=== PATIENT | male | born 2000 | race Two or more races ===

== ENCOUNTER 2024-06-26 10:50 | Emergency (ER) | payer MEDICAID, SELFPAY ==
[2024-06-26 10:51] VITALS: PULSE 96; RESP 18; O2SAT 96
[2024-06-26 11:09] VITALS: BP 129/72; PULSE 90; RESP 17; TEMP 37.4; O2SAT 98; BMI 27.7
--- NOTE | 2024-06-26 11:13 | EKG_ITS ---
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
--- NOTE | 2024-06-26 11:13 | XR_ITS ---
Examination: Abdomen AP single view Technique: AP portable supine abdomen, single view Exam date and time: June 26, 2024 1117 hrs. Indications: Onset abdominal pain today Findings: Nonobstructive bowel gas pattern Moderate stool throughout the colon No free air Lung bases clear Impression: Nonobstructive bowel gas pattern
--- NOTE | 2024-06-26 11:15 | PD.EDABDPN ---
ED Abdominal Pain RME/HPI General Chief Complaint: Abdominal Pain Stated complaint: ABDOMINAL PAIN Time seen by provider: 06/26/24 10:57 Arrival date/time: 06/26/24 10:50 RME / HPI RME / HPI narrative: 24-year-old male patient with significant history of depression, anxiety, was brought in by EMS for evaluation regarding lower abdominal pain. Onset of symptoms for the last 2 days, described as dull ache, severity mild. Patient denies any fever denies any vomiting but been complaining of constipation, last good bowel movement was 2 days ago. Denies any abdominal surgery. Related Data Allergies Allergy/AdvReac Type Severity Reaction Status Date / Time No Known Allergies Allergy Verified 11/30/21 13:27 Review of Systems Review of Systems Narrative Review of Systems: Review of system reviewed and within normal limits except mentioned in HPI ED Exam Narrative Physical exam: VITAL SIGNS: Reviewed. GENERAL APPEARANCE: Alert and interactive, follows commands, no acute distress, HEAD AND FACE: Non-traumatic. ENT: PERRL, pink conjunctivitis, eyelid no trauma, Mucous membrane moist. NECK: Supple, nontender, no nuchal rigidity. CHEST: No tenderness, no crepitus, no paradoxical movement, no retractions. LUNGS: Clear, well ventilated, symmetric, no rales, no wheezing, no ronchi, no stridor, good breath sounds bilaterally. HEART: Regular rate, regular rhythm, no murmur, no gallops. ABDOMEN: Soft, positive bowel sounds, nondistended, no guarding, lower abdominal tenderness r, no rebound, no masses, RECTAL: Deferred. GENITAL: Deferred. NEUROLOGICAL: Gross motor function intact sensory function intact, Appropriate for age. MUSCULOSKELETAL: low back nontender, full range of motion. EXTREMITIES: Nontender, full range of motion. SKIN: Color pink, dry, no rash, no lacerations, no abrasions, no contusions. LYMPHATICS: Deferred. Course Quality Measures none Orders Category Date Time Status EKG (ED ONLY) *Do not use* NOW Care 06/26/24 11:13 Completed EKG (ED Only) Stat Exams 06/26/24 11:13 Draft KUB [XR abdomen 1V] Stat Exams 06/26/24 11:13 Completed CBC Stat Lab 06/26/24 11:29 Completed Comprehensive Metabolic Panel Stat Lab 06/26/24 11:29 Completed Lipase Stat Lab 06/26/24 11:29 Completed Partial Thromboplastin Time Stat Lab 06/26/24 11:29 Completed UA, C/S IF [Urinalysis, C/S if Indicated] Stat Lab 06/26/24 11:45 Completed Acetaminophen Tab [Tylenol ES Tab] Med 06/26/24 11:13 Discontinued 1,000 mg PO X1 ONE DiphenhydrAMINE [Benadryl] Med 06/26/24 11:13 Discontinued 50 mg PO X1 ONE Magnesium Citrate Liqd [Citrate of Magnesia Liqd] Med 06/26/24 11:13 Discontinued 300 ml PO X1 ONE Vital Signs Vital signs: Vital Signs Temperature 99.3 F 06/26/24 11:09 Pulse Rate 90 06/26/24 11:09 Respiratory Rate 17 06/26/24 11:09 Blood Pressure 129/72 06/26/24 11:09 Pulse Oximetry (%) 98 06/26/24 11:09 Oxygen Delivery Method Room Air 06/26/24 11:09 Abdominal Pain MDM MDM Narrative MDM Narrative:: Patient eloped from the emergency room Patient data External records reviewed:: None Clinical information provided by:: none Social determinants that could affect healthcare access:: mental health Patient has the following chronic illnesses:: Depression anxiety How is presenting disease/condition affected by chronic disease/condition?: exacerbated by Evaluation data The following diagnostics were reviewed and interpreted by me:: lab results, radiology exam(s) and EKG tracing(s) Lab and/or radiology exams considered but not ordered:: None Interpretation Summary: EKG as interpreted by me shows normal sinus rhythm, ventricular rate of 55 bpm, no ST segment elevation or depression noted. X-ray of the abdomen came back unremarkable. Laboratory workup all came back unremarkable also. Medications / Prescriptions Medications or Prescriptions considered but not ordered:: None Medication administrations:: Medication Administration History Discontinued Medications Acetaminophen (Acetaminophen 500 Mg Tablet) 1,000 mg PO X1 ONE Stop: 06/26/24 11:14 Last Admin: 06/26/24 11:50 Dose: 1,000 mg Documented By: IVET Diphenhydramine HCl (Diphenhydramine 25 Mg Capsule) 50 mg PO X1 ONE Stop: 06/26/24 11:14 Last Admin: 06/26/24 11:51 Dose: 50 mg Documented By: IVET Magnesium Citrate (Magnesium Citrate 300 Ml Btl) 300 ml PO X1 ONE Stop: 06/26/24 11:14 Last Admin: 06/26/24 11:51 Dose: 300 ml Documented By: IVET Patient received Tylenol, Benadryl and mag citrate Consultations Consultation(s) initiated? (list below): No Diagnosis Differential diagnosis abdominal pain: abdominal pain, pancreatitis and small bowel obstruction Most likely diagnosis given after review of the tests above:: Abdominal pain, constipation, elopement Admission Indicated Admission indicated?: not indicated Explain why admission is indicated or not indicated:: Elopement Admission Request Was there a request for admission?: No Disposition Plan Disposition Plan: other (specify) Discharge Plan Plan Patient Disposition: Elopement Prescriptions/Referrals Referrals: No Primary/Family,Physician [Primary Care Provider] - In 1 week Problem List Clinical Impression: Abdominal pain Patient/Caregiver Discharge Instructions Print Language: Albanian
[2024-06-26 11:39] LABS: Basophils # (Auto) 0.1 Thou/mm3 (0.0-0.2); Basophils % (Auto) 1 % (0-2.5); Eosinophils # (Auto) 0.3 Thou/mm3 (0.0-0.5); Eosinophils % (Auto) 3 % (0-10); Hematocrit 47.5 % (41.0-53.0); Hemoglobin 16.5 g/dL (13.5-16.0); Immature Granulocytes % (Auto) 0 % (0-0); Immature Granulocytes Auto 0.02 Thou/mm3 (0.00-0.00); Lymphocytes # (Auto) 2.4 Thou/mm3 (1.0-4.8); Lymphocytes % (Auto) 25 % (10-50); Mean Corpuscular HGB Conc 34.7 g/dl (31.0-37.0); Mean Corpuscular Hemoglobin 29.3 pg (25.0-35.0); Mean Corpuscular Volume 84 fL (80-100); Monocytes % (Auto) 10 % (0-12); Neutrophils # (Auto) 5.9 Thou/mm3 (1.8-7.7); Neutrophils % (Auto) 61 % (37-80); Nucleated Red Blood Cell % 0 /100 WBC (0); Platelet Count 122 Thou/mm3 (140-440); RDW Standard Deviation 39.6 fL (35.1-43.9); Red Blood Count 5.63 Miln/mm3 (4.50-5.90); White Blood Count 9.6 Thou/mm3 (3.8-10.6)
[2024-06-26] MEDS: ACETAMINOPHEN 500 MG TABLET 1000 MG PO (11:50)
[2024-06-26] MEDS: MAGNESIUM CITRATE 300 ML BTL PO (11:51)
[2024-06-26] MEDS: DiphenhydrAMINE 25 MG CAPSULE 50 MG PO (11:51)
[2024-06-26 11:52] LABS: Partial Thromboplastin Time 29.5 Seconds (22.0-36.0)
[2024-06-26 11:58] LABS: Alanine Aminotransferase 53 U/L (10-49); Albumin, Serum 4.7 gm/dL (3.5-5.0); Albumin/Globulin Ratio 1.4 (1.2-2.2); Alkaline Phosphatase 92 U/L (46-116); Anion Gap 5 (7-16); Aspartate Amino Transferase 28 U/L (0-34); BUN/Creatinine Ratio 11 Ratio (12-20); Bilirubin,Total 0.7 mg/dL (0.3-1.2); Blood Urea Nitrogen 11 mg/dL (9-23); Chloride 105 mMol/L (98-107); Estimated Creatinine Clearance 113.9 mL/min (>60); Globulin 3.3 gm/dL (2.3-3.5); Glucose 88 mg/dL (74-106); Lipase 35 U/L (12-53); Osmolality,Calculated 274 (275-295); Potassium 3.6 mMol/L (3.4-5.1); Sodium 138 mMol/L (136-145); eGFR > 60 See Note
[2024-06-26 13:25] LABS: Collection Type, Urine Clean Catch; WBC,Urine 0 /hpf (0-5)
[2024-06-26 13:31] LABS: Bilirubin,Urine Negative (Negative); Blood,Urine Negative (Negative); Clarity,Urine Clear (Clear/Hazy); Color,Urine Colorless (Lt Yel-Yel); Culture Indicated,Urine Not Indicated; Glucose, Urine Negative (Negative); Ketones,Urine Negative (Negative); Leukocyte Esterase,Urine Negative (Negative); Nitrite,Urine Negative (Negative); PH,Urine 6.5 (5.0-7.0); Protein,Urine Negative (Neg - Trace); RBC,Urine 2 /hpf (0-3); Specific Gravity,Urine 1.007 (1.001-1.035); Squamous Epithelial Cell,Urine < 1 /hpf (0-5); Urobilinogen,Urine Negative mg/dL (0.0-1.0)
--- NOTE | 2024-06-26 13:56 | PC.NURSE ---
patient left from lobby
--- NOTE | 2024-06-26 13:56 | PC.NURSE ---
called patient from lobby no response @2052
--- NOTE | 2024-06-26 14:33 | PC.NURSE ---
patient was called 3x but no answer
--- NOTE | 2024-06-26 16:10 | PC.CC ---
ED Instruction Dean assisted with contacting [employer] to report AWOL Pt. Director Of Field Coordination spoke with dispatcher Yolanda from [employer] and gave report of Pt. Dispatcher Yolanda informed casualty underwriter that [employer] officer will be dispatch to [facility] in efforts to locate Pt. Director Of Field Coordination provider direct cell phone number for follow up if needed.
== END 2024-06-26 14:34 | disposition left against medical advice (07) ==
PROVIDERS: Nurse Practitioner Family; Emergency Provider Emergency Medicine
DX: R10.30 Lower abdominal pain, unspecified (principal); R94.31 Abnormal electrocardiogram [ECG] [EKG]
CPT/HCPCS: 36415; 74018; 80053; 81001; 83690; 85025; 85730; 93005; 99283; A9270

== ENCOUNTER 2024-07-29 09:23 | Emergency (ER) | payer MEDICAID, SELFPAY ==
[2024-07-29 09:40] VITALS: PULSE 134; RESP 18; O2SAT 97; BMI 29.2
--- NOTE | 2024-07-29 09:47 | PC.NURSE ---
social scientist contacted due to patient states he is lost, he walked from [place] to [place] all night and now he does not know where to go, he misses his mom
--- NOTE | 2024-07-29 09:54 | PC.CC ---
Sarah WOLFF was consulted by press tool maker Sara regarding patient he was found wandering around the city and BIBA. Patient is a client of [facility] made contact with [facility] on-call waiting for a call back. Patient unable to provide identifying information as to where he lives or phone numbers.
--- NOTE | 2024-07-29 10:05 | PD.EDADULT ---
ED General RME/HPI General Chief complaint: General Adult/Misc Complain Stated complaint: I'm lost and I want my mom Time Seen by Provider: 07/29/24 09:49 Arrival date/time: 07/29/24 09:23 RME / HPI RME / HPI narrative: DR. FINCH MAIN ED EVALUATION: 24 year old male presents to the Emergency Department [facility] after a random person called 911 after finding the patient wandering the streets of [place]. Patient appears mentally delayed and he did state he is lost. Patient walked away form a longterm and got lost. No symptoms reported. Related Data Allergies Allergy/AdvReac Type Severity Reaction Status Date / Time No Known Allergies Allergy Verified 11/30/21 13:27 Review of Systems Review of Systems Systems Reviewed: All systems reviewed, normal except as documented Narrative Review of Systems: GEN: No fever, no chills, no weight loss EYES: No discharge, no visual changes, no pain HEENT: No ear pain, no congestion, no sore throat PULM: No shortness of breath, no cough, no congestion CV: No chest pain, no dyspnea on exertion, no palpitations GI: No nausea, no vomiting, no diarrhea, no pain, no constipation : No frequency, no urgency and no dysuria MUSC/SKEL: No joint pain, no back pain SKIN: No rash PSYCH: No hallucinations, no depression HEME/LYMPH: No easy bleeding or bruising tendencies NEURO: No weakness, no headache Past Medical History Past Medical History CARDIAC: Negative Congestive Heart Failure RESPIRATORY: Negative Chronic Obstructive Pulmonary Disease (COPD) GENITOURINARY: Negative Renal Disease ENDOCRINE: Negative Diabetes Mellitus Type 1 or Diabetes Mellitus Type 2 Social History SMOKING STATUS: Never smoker ED Exam Narrative Physical exam: GENERAL APPEARANCE: alert, well-developed, well-nourished, no acute distress VITALS: All vitals were reviewed and the pulse ox is 97% on room air, which is normal according to my interpretation. HEENT: Normocephalic, atraumatic; pupils equal, round, reactive to light; EOMI; mucous membranes pink, moist; oropharynx clear NECK: Supple LUNGS: CTABL; no wheezes, no rales, no rhonchi HEART: Regular rate, regular rhythm; normal S1, S2; no murmurs ABDOMEN: non distended; normal BS; soft, no tenderness, no guarding, no rebound; no masses, no organomegaly, no hernia BACK: no CVA tenderness EXTREMITIES: atraumatic; no edema NEUROLOGIC: awake; alert; cranial nerves II-XII grossly intact; no focal sensory or motor deficits PSYCHIATRIC: appropriate mood and affect SKIN: warm, dry, normal color; no rashes Course Quality Measures none Vital Signs Vital signs: Vital Signs Temperature 98.1 F 07/29/24 10:18 Pulse Rate 92 07/29/24 10:18 Respiratory Rate 16 07/29/24 10:18 Blood Pressure 129/85 H 07/29/24 10:18 Pulse Oximetry (%) 97 07/29/24 10:18 Oxygen Delivery Method Room Air 07/29/24 10:18 MDM Patient data External records reviewed:: [facility] previous records (Reviewed last ED visit dated 06/26/24, discharged with the following: Abdominal pain.) Clinical information provided by:: patient and EMS Social determinants that could affect healthcare access:: housing (longterm) Patient has the following chronic illnesses:: Anxiety and depression. How is presenting disease/condition affected by chronic disease/condition?: uneffected by Evaluation data The following diagnostics were reviewed and interpreted by me:: other (specify) (none) Lab and/or radiology exams considered but not ordered:: none Interpretation Summary: n/a Medications Medications considered but not ordered:: none Medication administrations:: none Consultations Consultation(s) initiated? (list below): No Diagnosis Differential Diagnosis ED Complaint MDM: wandering behaviour, dehydration, anxiety Most likely diagnosis given after review of the tests above:: Wandering behavior Admission Indicated Admission indicated?: not indicated Explain why admission is indicated or not indicated:: Patient has no emergent abnormalities on his studies and can be managed on an outpatient basis. Admission Request Was there a request for admission?: No Disposition Plan Disposition Plan: Discharge Discharge Attestation Discharge Attestation: The patient and all family members were given an opportunity to ask questions and understood the discharge instructions. Discharge instructions specifically effects, indications for sooner follow up or return to the emergency department, and the expected course of current diagnosis. Patient condition: Stable Medical Decision Making MDM Narrative MDM Narrative: Esthela Barbosa, avinash scribing for and in the presence of Dr. Finch. Differential Diagnosis Differential Diagnosis: wandering behaviour, dehydration, anxiety Discharge Plan Plan Patient Disposition: HOME (Self Care) Disposition Comment: [facility] Problem List Clinical Impression: Wandering behavior Patient/Caregiver Discharge Instructions Print Language: Syriac Stand Alone Forms: Mayra Award Info., Patient Portal Info Letter
[2024-07-29 10:18] VITALS: BP 129/85; PULSE 92; RESP 16; TEMP 36.7; O2SAT 97
--- NOTE | 2024-07-29 10:19 | PC.CC ---
Patient livea at [facility], this is a [facility] home. The home health care case manager is Theresa Blevins and contact number is [phone]. She reported that patient has tendencies of sneaking out of the home.
== END 2024-07-29 10:30 | disposition home or self-care (01) ==
LOC: SERX 10:36
PROVIDERS: Emergency Provider Emergency Medicine
DX: Z76.89 Persons encountering health services in other specified circumstances (principal); Z91.83 Wandering in diseases classified elsewhere
CPT/HCPCS: 99281

== ENCOUNTER 2024-08-01 16:58 | Emergency (ER) | payer MEDICAID, SELFPAY ==
[2024-08-01 17:00] VITALS: BP 112/75; PULSE 92; RESP 18; TEMP 37.2; O2SAT 96
--- NOTE | 2024-08-01 17:23 | PC.CC ---
Patient was BIBA for 5150-Hold Danger to Self for [place] his wrist [place] the bus [place]. Patient is a [facility] client his [facility] worker is Aida Soler . Patient lives at [facility], this is a [facility] home. The home improvement installer is Theresa Blevins and contact number is [phone]. Theresa reports that the patient is not conserved. The patient recently had a medication change from Lexapro 10mg to 15mg approximately 3 weeks ago, patient also gets an Invega shot every 3 weeks. The patient has a mental health diagnosis of Major Depressive Disorder and Generalized Anxiety.
--- NOTE | 2024-08-01 18:02 | PD.EDSUICD ---
ED Psych RME/HPI General Chief Complaint: Suicidal Stated Complaint: HOLD Time Seen by Provider: 08/01/24 18:02 Source: patient and EMS Arrival date/time: 08/01/24 16:58 Mode of arrival: EMS Limitations: no limitations RME / HPI RME / HPI Narrative: --- DR. FLOYD MAIN ED EVALUATION: 24-year-old male brought in by EMS who presents to the emergency department on 5150 hold by Valeria CRANE. Police reports patient cut his left wrist with a razor blade. Patient reported suicidal ideation and anxiety because he is sad and misses his mom. Denies overdosing on any medication. Denies previous suicide attempts. Denies history of family suicide, panic disorder or recent loss. Denies homicidal ideation. Related Data Allergies Allergy/AdvReac Type Severity Reaction Status Date / Time No Known Allergies Allergy Verified 11/30/21 13:27 Review of Systems Review of Systems Systems Reviewed: All systems reviewed, normal except as documented Past Medical History Past Medical History CARDIAC: Negative Congestive Heart Failure RESPIRATORY: Negative Chronic Obstructive Pulmonary Disease (COPD) GENITOURINARY: Negative Renal Disease ENDOCRINE: Negative Diabetes Mellitus Type 1 or Diabetes Mellitus Type 2 OTHER HISTORY: Positive Developmental Delay Social History SMOKING STATUS: Never smoker ED Exam General Limitations: Present no limitations General appearance: Present alert and in no apparent distress Head Head exam: Present atraumatic, normocephalic and normal inspection Eye Eye exam: Present normal appearance, PERRL and EOMI ENT ENT exam: Present normal exam, normal oropharynx, TM's normal bilaterally and normal external ear exam Neck Neck exam: Present normal inspection and full ROM Chest Chest inspection: Present normal inspection and symmetric chest wall rise Respiratory Respiratory exam: Present normal lung sounds bilaterally Cardiovascular Cardiovascular exam: Present regular rate, normal rhythm and normal heart sounds Abdominal Exam Abdominal exam: Present normal bowel sounds Extremities Exam Extremities exam: Present normal inspection and full ROM Back Exam Back exam: Present normal inspection and full ROM Neurological Exam Neurological exam: Present alert, oriented X3 and CN II-XII intact Psychiatric Psychiatric exam: Present depressed and suicidal ideation Skin Skin exam: Present warm, dry, intact, normal color and other (lacerations to ulnar aspect of left forearm) Course Course Course Narrative: Patient was placed in observation for treatment and monitoring of psychiatric symptoms, at 08/01/24 16:58. Symptoms consist of suicidal ideation and depression. Treatment plan includes psychiatric consult, reassessments, and possible placement into psychiatric facility. The patient had access and provided personal hygiene, shower, food, water, and daily medications. 2018: Patient is medically cleared to be seen by crisis for mental health evaluation. Quality Measures none Orders Category Date Time Status CBC Stat Lab 08/01/24 18:31 Completed Comprehensive Metabolic Panel Stat Lab 08/01/24 18:31 Completed Drug Screen,Urine Stat Lab 08/01/24 20:18 Completed Vital Signs Vital signs: Vital Signs Temperature 99.0 F 08/01/24 17:00 Pulse Rate 92 08/01/24 17:00 Respiratory Rate 18 08/01/24 17:00 Blood Pressure 112/75 08/01/24 17:00 Pulse Oximetry (%) 96 08/01/24 17:00 Oxygen Delivery Method Room Air 08/01/24 17:00 Psych MDM Narrative MDM Narrative:: 0600: [facility]. Past medical, surgical, social and family history reviewed. Vitals and home medications reviewed. Results and treatment plan discussed. They will assume the care of the patient at this time and will follow the patient, pending mental health evaluation ? Scribe Attestation: Adwoa Barbosa, am scribing for and in the presence of Dr. Davies. Provider Notation: Although this document has been carefully reviewed, there may still be some phonetic and other typographical errors. These errors are purely grammatical due to imperfections in the software program and should not be construed in any way to compromise the substance of the patient's medical care during this visit. Patient data External records reviewed:: [facility] previous records Clinical information provided by:: patient Social determinants that could affect healthcare access:: housing (review of the record shows [facility] of [facility] [place] [facility]; followed by [facility]) Patient has the following chronic illnesses:: developmentally delayed, depression, anxiety How is presenting disease/condition affected by chronic disease/condition?: uneffected by Evaluation data The following diagnostics were reviewed and interpreted by me:: lab results Lab and/or radiology exams considered but not ordered:: None Interpretation Summary: Elevated WBC 13.1 Tox screen negative Medications / Prescriptions Medications or Prescriptions considered but not ordered:: None Medication administrations:: As above, if any Consultations Consultation(s) initiated? (list below): Yes Consultation #1 (Physician, Specialty, Details): Mental health evaluation Diagnosis Psych Differential Diagnosis: suicidal ideation, depression and acute anxiety Most likely diagnosis given after review of the tests above:: SI Admission Indicated Admission indicated?: not indicated Admission Request Was there a request for admission?: No Disposition Plan Disposition Plan: other (specify) (sign-out pending mental health evalaution and final disposition) Discharge Plan Plan Disposition Comment: Stable at the sign week out Patient condition on transfer: Stable Prescriptions/Referrals Referrals: Frank Son MD [Primary Care Provider] - In 1 week Problem List Clinical Impression: Suicidal ideation, Deliberate self-cutting, Abrasion forearm Patient/Caregiver Discharge Instructions Print Language: Telugu
[2024-08-01 18:30] VITALS: PULSE 76; RESP 16; O2SAT 98
[2024-08-01 18:42] LABS: Basophils # (Auto) 0.1 Thou/mm3 (0.0-0.2); Basophils % (Auto) 1 % (0-2.5); Eosinophils # (Auto) 0.3 Thou/mm3 (0.0-0.5); Eosinophils % (Auto) 2 % (0-10); Hematocrit 46.6 % (41.0-53.0); Hemoglobin 15.7 g/dL (13.5-16.0); Immature Granulocytes % (Auto) 0 % (0-0); Immature Granulocytes Auto 0.04 Thou/mm3 (0.00-0.00); Lymphocytes # (Auto) 2.4 Thou/mm3 (1.0-4.8); Lymphocytes % (Auto) 18 % (10-50); Mean Corpuscular HGB Conc 33.7 g/dl (31.0-37.0); Mean Corpuscular Hemoglobin 29.1 pg (25.0-35.0); Mean Corpuscular Volume 87 fL (80-100); Monocytes # (Auto) 0.9 Thou/mm3 (0.0-0.8); Monocytes % (Auto) 7 % (0-12); Neutrophils # (Auto) 9.4 Thou/mm3 (1.8-7.7); Neutrophils % (Auto) 72 % (37-80); Nucleated Red Blood Cell % 0 /100 WBC (0); Platelet Count 165 Thou/mm3 (140-440); RDW Standard Deviation 40.3 fL (35.1-43.9); Red Blood Count 5.39 Miln/mm3 (4.50-5.90); White Blood Count 13.1 Thou/mm3 (3.8-10.6)
[2024-08-01 19:03] LABS: Alanine Aminotransferase 42 U/L (10-49); Albumin, Serum 4.8 gm/dL (3.5-5.0); Albumin/Globulin Ratio 1.7 (1.2-2.2); Alkaline Phosphatase 83 U/L (46-116); Anion Gap 6 (7-16); Aspartate Amino Transferase 24 U/L (0-34); BUN/Creatinine Ratio 12 Ratio (12-20); Bilirubin,Total 0.5 mg/dL (0.3-1.2); Blood Urea Nitrogen 13 mg/dL (9-23); Calcium 9.8 mg/dL (8.3-10.6); Calcium (Corrected) 9.8 mg/dL (8.5-10.1); Carbon Dioxide 28.6 mMol/L (20.0-31.0); Chloride 104 mMol/L (98-107); Creatinine (Component) 1.1 mg/dL (0.6-1.3); Globulin 2.9 gm/dL (2.3-3.5); Glucose 92 mg/dL (74-106); Osmolality,Calculated 277 (275-295); Potassium 4.2 mMol/L (3.4-5.1); Sodium 139 mMol/L (136-145); Total Protein 7.7 gm/dL (5.7-8.2); eGFR > 60 See Note
[2024-08-01 20:26] VITALS: BP 106/66; PULSE 66; RESP 19; TEMP 36.6; O2SAT 96
[2024-08-01 22:15] LABS: Amphetamine/Methamp Scrn,U Negative (Negative); Barbiturate Screen,Urine Negative (Negative); Benzodiazepines Screen,Urine Negative (Negative); Benzoylecgonine Screen, Ur Negative (Negative); Fentanyl Screen,Urine Negative (Negative); Opiate Screen,Urine Negative (Negative); THC Screen,Urine Negative (Negative)
[2024-08-01 23:22] VITALS: BP 110/70; PULSE 70; RESP 18; TEMP 36.8; O2SAT 98
[2024-08-02 01:29] VITALS: BP 120/78; PULSE 68; RESP 17; TEMP 36.7; O2SAT 97
--- NOTE | 2024-08-02 03:18 | PC.NURSE ---
pt has been sleeping. arouses easily.
[2024-08-02 05:48] VITALS: BP 116/72; PULSE 66; RESP 16; TEMP 36.6; O2SAT 98
--- NOTE | 2024-08-02 06:35 | EDNOTE_ITS ---
Emergency Room Addendum <Esthela Olea - Last Filed: 08/02/24 10:43> Addendum Narrative: 0600: Care assumed from Dr. Preston, the previous shift emergency physician. Past medical, surgical, social and family history reviewed. Vitals and home medications reviewed. I will assume the care of the patient at this time, pending mental health evaluation and final disposition. The patient was placed in ED observation care at 08/02/2024 at 0600 hours. The patient was placed in ED observation care behavioral health evaluation. The patients past medical history, social history, and family history were reviewed. The plan of care will include serial examinations. Please refer to the emergency department record for history and examination.? While in ED observation the patient will have access to water, food, and personal hygiene. If the patient takes home medication(s), they will be continued in ED observation. Physical exam by me shows patient under no acute distress at this time. 1000: Psychiatric hold rescinded. Patient will be discharged. Safety plan in place. <Johnny Valenzuela MD - Last Filed: 08/02/24 10:51> Addendum Narrative: 0600: Care assumed from Dr. Preston, the previous shift emergency physician. Past medical, surgical, social and family history reviewed. Vitals and home medications reviewed. I will assume the care of the patient at this time, pending mental health evaluation and final disposition. The patient was placed in ED observation care at 08/02/2024 at 0600 hours. The pa tient was placed in ED observation care behavioral health evaluation. The patients past medical history, social history, and family history were reviewed. The plan of care will include serial examinations. Please refer to the emergency department record for history and examination.? While in ED observation the patient will have access to water, food, and personal hygiene. If the patient takes home medication(s), they will be continued in ED observation. Physical exam by me shows patient under no acute distress at this time. 1000: Psychiatric hold rescinded. Patient will be discharged. Safety plan in place. I spoke to the social professionals/mental health change number operator. She had rescinded the 5150 and decided to let the patient go back to the home. Care provider is rishabh ochoa to mixing picker tender. 10:50 AM, the patient is alert awake oriented x 4 GCS of 15 happy and smiling cooperative. I examined his left forearm and its only excoriation. No laceration. Nothing thick enough to warrant suture. And no bleeding. Diagnosis suicidal ideation Condition: Stable and improved DC instruction: Please do not cut yourself. Please do not overdose. Follow the instruction given you by the social professionals/mental health change number operator. Return the nearest ER for any problem
[2024-08-02 06:47] VITALS: BP 118/66; PULSE 68; RESP 17; TEMP 36.6; O2SAT 98
[2024-08-02 08:36] VITALS: BP 101/64; PULSE 60; RESP 18; TEMP 36.9; O2SAT 95
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
[2024-08-02 10:19] VITALS: BP 107/68; PULSE 60; RESP 17; TEMP 36.9; O2SAT 95
--- NOTE | 2024-08-03 19:25 | PC.CC ---
Pts chart accessed to update crisis stats and log.
== END 2024-08-02 11:28 | disposition home or self-care (01) ==
PROVIDERS: Emergency Medicine; Emergency Provider Emergency Medicine; PCP Family Medicine
DX: R45.851 Suicidal ideations (principal); S50.819A Abrasion of unspecified forearm, initial encounter; X78.8XXA Intentional self-harm by other sharp object, initial encounter
CPT/HCPCS: 36415; 80053; 80307; 85025; 96127; 99284

== ENCOUNTER 2024-08-04 15:36 | Emergency (ER) | payer MEDICAID, SELFPAY ==
[2024-08-04 15:45] VITALS: BP 115/80; PULSE 87; RESP 18; TEMP 37.2; O2SAT 97
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
[2024-08-04 16:18] LABS: Basophils # (Auto) 0.1 Thou/mm3 (0.0-0.2); Basophils % (Auto) 1 % (0-2.5); Eosinophils # (Auto) 0.2 Thou/mm3 (0.0-0.5); Eosinophils % (Auto) 2 % (0-10); Hematocrit 46.3 % (41.0-53.0); Immature Granulocytes % (Auto) 0 % (0-0); Immature Granulocytes Auto 0.02 Thou/mm3 (0.00-0.00); Lymphocytes % (Auto) 19 % (10-50); Mean Corpuscular HGB Conc 34.6 g/dl (31.0-37.0); Mean Corpuscular Hemoglobin 29.7 pg (25.0-35.0); Mean Corpuscular Volume 86 fL (80-100); Monocytes # (Auto) 0.8 Thou/mm3 (0.0-0.8); Monocytes % (Auto) 8 % (0-12); Neutrophils # (Auto) 7.3 Thou/mm3 (1.8-7.7); Neutrophils % (Auto) 70 % (37-80); Nucleated Red Blood Cell % 0 /100 WBC (0); Platelet Count 159 Thou/mm3 (140-440); RDW Standard Deviation 39.9 fL (35.1-43.9); Red Blood Count 5.39 Miln/mm3 (4.50-5.90); White Blood Count 10.5 Thou/mm3 (3.8-10.6)
[2024-08-04 16:20] VITALS: PULSE 102; RESP 18; O2SAT 96; BMI 22.8
[2024-08-04 16:38] LABS: Alanine Aminotransferase 50 U/L (10-49); Albumin, Serum 4.9 gm/dL (3.5-5.0); Albumin/Globulin Ratio 1.7 (1.2-2.2); Alkaline Phosphatase 81 U/L (46-116); Anion Gap 9 (7-16); Aspartate Amino Transferase 23 U/L (0-34); BUN/Creatinine Ratio 12 Ratio (12-20); Bilirubin,Total 0.6 mg/dL (0.3-1.2); Blood Urea Nitrogen 12 mg/dL (9-23); Calcium 9.5 mg/dL (8.3-10.6); Calcium (Corrected) 9.5 mg/dL (8.5-10.1); Carbon Dioxide 26.3 mMol/L (20.0-31.0); Chloride 104 mMol/L (98-107); Estimated Creatinine Clearance 111.5 mL/min (>60); Globulin 2.9 gm/dL (2.3-3.5); Glucose 95 mg/dL (74-106); Osmolality,Calculated 277 (275-295); Potassium 3.5 mMol/L (3.4-5.1); Sodium 139 mMol/L (136-145); Total Protein 7.8 gm/dL (5.7-8.2); eGFR > 60 See Note
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
[2024-08-04 17:32] LABS: Alcohol, Urine Negative (Negative); Amphetamine/Methamp Scrn,U Negative (Negative); Barbiturate Screen,Urine Negative (Negative); Benzodiazepines Screen,Urine Negative (Negative); Benzoylecgonine Screen, Ur Negative (Negative); Fentanyl Screen,Urine Negative (Negative); Opiate Screen,Urine Negative (Negative); THC Screen,Urine Negative (Negative)
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
== END 2024-08-04 18:31 | disposition home or self-care (01) ==
PROVIDERS: Registered Nurse General Practice; Emergency Provider Emergency Medicine; PCP Family Medicine
DX: Z62.22 Institutional upbringing (principal)
CPT/HCPCS: 36415; 80053; 80307; 80320; 85025; 96127; 99284; G0480

== ENCOUNTER 2024-08-06 17:50 | Emergency (ER) | payer MEDICAID, SELFPAY ==
[2024-08-06 17:52] VITALS: BP 107/72; PULSE 83; RESP 18; TEMP 36.9; O2SAT 97
--- NOTE | 2024-08-06 18:01 | PC.CC ---
CLIFFORDWSarah made contact with Theresa Blevins home visitor home base head start and reports that the patient has been eloping and she has requested one on one time from [facility] but they are not providing him more support. She reports she will be contacting the on-call [facility] worker to provide more time for him for an aide to remain with him 18/02. Theresa will be responding to the hospital.
[2024-08-06 18:03] VITALS: PULSE 90; BMI 27.4
--- NOTE | 2024-08-06 18:10 | EKG_ITS ---
[facility] Test Date: 2024-08-06 Pat Name: KENIA PIÑA Department: Room: - Gender: Male Healthcare Insurance Sales Agent: : [id number] Requested By: Radha Mehta Order Number: [id number] Reading MD: Radha Mehta Measurements Intervals [place] Rate: 75 P: 40 CT: 162 QRS: 59 QRSD: 84 T: 22 QT: 350 QTc: 392 Interpretive Statements SINUS RHYTHM Compared to ECG 06/26/2024 11:43:58 Indeterminate axis no longer present /store/S0/[id number]/[id number].pdf
--- NOTE | 2024-08-06 18:10 | PD.EDADULT ---
ED General RME/HPI General Chief complaint: General Adult/Misc Complain Stated complaint: CHEST PAIN Time Seen by Provider: 08/06/24 18:04 Arrival date/time: 08/06/24 17:50 RME / HPI RME / HPI narrative: 24-year-old male patient with significant history of mental retardation, was brought in by EMS for evaluation regarding substernal chest pain. Onset of symptoms several hours prior to ER visit substernal chest pain, described as dull ache, severity mild. Patient denies any cough denies any other complaints. No medications taken prior to arrival. Related Data Previous Rx's ?Medication ?Instructions ?Recorded famotidine 20 mg tablet (Pepcid) 20 mg PO BID #14 tabs 08/06/24 Allergies Allergy/AdvReac Type Severity Reaction Status Date / Time No Known Allergies Allergy Verified 11/30/21 13:27 Review of Systems Review of Systems Narrative Review of Systems: Review of system reviewed and within normal limits except mentioned in HPI ED Exam Narrative Physical exam: VITAL SIGNS: Reviewed. GENERAL APPEARANCE: Alert and interactive, follows commands, no acute distress, HEAD AND FACE: Non-traumatic. ENT: PERRL, pink conjunctivitis, eyelid no trauma, Mucous membrane moist. NECK: Supple, nontender, no nuchal rigidity. CHEST: No tenderness, no crepitus, no paradoxical movement, no retractions. LUNGS: Clear, well ventilated, symmetric, no rales, no wheezing, no ronchi, no stridor, good breath sounds bilaterally. HEART: Regular rate, regular rhythm, no murmur, no gallops. ABDOMEN: Soft, positive bowel sounds, nondistended, no guarding, nontender, no rebound, no masses, RECTAL: Deferred. GENITAL: Deferred. NEUROLOGICAL: Gross motor function intact sensory function intact, Appropriate for age. MUSCULOSKELETAL: low back nontender, full range of motion. EXTREMITIES: Nontender, full range of motion. SKIN: Color pink, dry, no rash, no lacerations, no abrasions, no contusions. LYMPHATICS: Deferred. Course Quality Measures none Orders Category Date Time Status EKG (ED ONLY) *Do not use* NOW Care 08/06/24 18:10 Active EKG (ED Only) Stat Exams 08/06/24 18:10 Draft Acetaminophen Tab [Tylenol ES Tab] Med 08/06/24 18:08 Discontinued 500 mg PO X1 ONE mg Hyd/Al Hyd/Harinder Susp [Maalox Susp] Med 08/06/24 18:08 Discontinued 30 ml PO X1 ONE Vital Signs Vital signs: Vital Signs Temperature 98.5 F 08/06/24 17:52 Pulse Rate 83 08/06/24 17:52 Respiratory Rate 18 08/06/24 17:52 Blood Pressure 107/72 08/06/24 17:52 Pulse Oximetry (%) 97 08/06/24 17:52 Oxygen Delivery Method Room Air 08/06/24 17:52 [facility] Patient data External records reviewed:: None Clinical information provided by:: patient and EMS Social determinants that could affect healthcare access:: none Patient has the following chronic illnesses:: Mental retardation How is presenting disease/condition affected by chronic disease/condition?: uneffected by Evaluation data The following diagnostics were reviewed and interpreted by me:: EKG tracing(s) Lab and/or radiology exams considered but not ordered:: none Interpretation Summary: EKG showed sinus rhythm, ventricular rate of 75 bpm, no ST segment elevation or depression noted. Normal EKG Medications Medications considered but not ordered:: None Medication administrations:: Medication Administration History Discontinued Medications Acetaminophen (Acetaminophen 500 Mg Tablet) 500 mg PO X1 ONE Stop: 08/06/24 18:09 Last Admin: 08/06/24 18:31 Dose: 500 mg Documented By: ELIEZER Al Hydrox/Mg Hydrox/Simethicone (Mg Hyd/Al Hyd/Harinder (Maalox Reg) Susp 30 Ml Udc) 30 ml PO X1 ONE Stop: 08/06/24 18:09 Last Admin: 08/06/24 18:32 Dose: 30 ml Documented By: ELIEZER Tylenol and Maalox Consultations Consultation(s) initiated? (list below): No Diagnosis Differential Diagnosis ED Complaint MDM: Chest pain, GERD, causing chest pain, gastritis Most likely diagnosis given after review of the tests above:: GERD causing chest pain Admission Indicated Admission indicated?: not indicated Explain why admission is indicated or not indicated:: Stable Admission Request Was there a request for admission?: No Disposition Plan Disposition Plan: Discharge Discharge Attestation Discharge Attestation: The patient was given an opportunity to ask questions and understood the discharge instructions. Discharge instructions specifically effects, indications for sooner follow up or return to the emergency department, and the expected course of current diagnosis. Patient condition: Stable Medical Decision Making MDM Narrative MDM Narrative: 24-year-old male patient with significant history of mental retardation, was brought in by EMS for evaluation regarding substernal chest pain. Onset of symptoms several hours prior to ER visit substernal chest pain, described as dull ache, severity mild. Patient denies any cough denies any other complaints. No medications taken prior to arrival. Patient EKG shows sinus rhythm, ventricular rate of 75 bpm, no ST segment elevation depression noted. Patient received Maalox and Tylenol in the emergency room with complete resolution of symptoms. Differential Diagnosis Differential Diagnosis: Chest pain, GERD, causing chest pain, gastritis Discharge Plan Plan Patient Disposition: HOME (Self Care) Disposition Comment: stable Prescriptions/Referrals Prescriptions/Med Rec: New famotidine [Pepcid] 20 mg tablet 20 mg PO BID Qty: 14 0RF Problem List Clinical Impression: Chest pain due to GERD Patient/Caregiver Discharge Instructions Discharge Activity: activity as tolerated Education Materials: ED GERD (Adult) Additional Instructions: Thank you for the opportunity for serving you today. You are stable for discharged . You are advised to: Follow-up with your PCP in 1 to 2 days Return to ED for worsening of symptoms Increase oral fluids Take medication as prescribed Print Language: Lithuanian Stand Alone Forms: Mayra Award Info., Patient Portal Info Letter HOMERO/TAMAAR Supervising Physician HOMERO/TAMARA Supervising Physician: MD Valdo
[2024-08-06] MEDS: ACETAMINOPHEN 500 MG TABLET PO (18:31)
[2024-08-06] MEDS: MG HYD/AL HYD/SIME (Maalox Reg) SUSP 30 ML UDC PO (18:32)
== END 2024-08-06 18:40 | disposition home or self-care (01) ==
LOC: SERX 18:35
PROVIDERS: Emergency Provider Emergency Medicine
DX: R07.9 Chest pain, unspecified (principal); K21.9 Gastro-esophageal reflux disease without esophagitis; F79 Unspecified intellectual disabilities
CPT/HCPCS: 93005; 99283; A9270

== ENCOUNTER 2024-08-08 09:47 | Emergency (ER) | payer MEDICAID, SELFPAY ==
[2024-08-08 10:10] VITALS: BP 110/73; PULSE 76; RESP 17; TEMP 37.2; O2SAT 98; BMI 26.6
[2024-08-08 10:13] LABS: Basophils % (Auto) 1 % (0-2.5); Eosinophils # (Auto) 0.1 Thou/mm3 (0.0-0.5); Eosinophils % (Auto) 1 % (0-10); Hematocrit 48.7 % (41.0-53.0); Hemoglobin 16.4 g/dL (13.5-16.0); Lymphocytes # (Auto) 1.9 Thou/mm3 (1.0-4.8); Lymphocytes % (Auto) 21 % (10-50); Mean Corpuscular HGB Conc 33.7 g/dl (31.0-37.0); Mean Corpuscular Hemoglobin 29.4 pg (25.0-35.0); Mean Corpuscular Volume 87 fL (80-100); Monocytes # (Auto) 0.5 Thou/mm3 (0.0-0.8); Monocytes % (Auto) 5 % (0-12); Neutrophils # (Auto) 6.5 Thou/mm3 (1.8-7.7); Neutrophils % (Auto) 71 % (37-80); Platelet Count 156 Thou/mm3 (140-440); RDW Standard Deviation 40.6 fL (35.1-43.9); Red Blood Count 5.58 Miln/mm3 (4.50-5.90); White Blood Count 9.1 Thou/mm3 (3.8-10.6)
[2024-08-08 10:14] LABS: Basophils # (Auto) 0.1 Thou/mm3 (0.0-0.2); Immature Granulocytes % (Auto) 0 % (0-0); Immature Granulocytes Auto 0.03 Thou/mm3 (0.00-0.00); Nucleated Red Blood Cell % 0 /100 WBC (0)
[2024-08-08 10:34] LABS: Acetaminophen < 2.0 mcg/mL (10.0-20.0); Alanine Aminotransferase 50 U/L (10-49); Albumin/Globulin Ratio 1.6 (1.2-2.2); Alcohol, Blood Medical < 3.0 mg/dL (0-10.0); Alkaline Phosphatase 87 U/L (46-116); Anion Gap 7 (7-16); Aspartate Amino Transferase 28 U/L (0-34); BUN/Creatinine Ratio 10 Ratio (12-20); Bilirubin,Total 0.5 mg/dL (0.3-1.2); Blood Urea Nitrogen 10 mg/dL (9-23); Calcium 9.9 mg/dL (8.3-10.6); Calcium (Corrected) 9.9 mg/dL (8.5-10.1); Carbon Dioxide 27.8 mMol/L (20.0-31.0); Chloride 104 mMol/L (98-107); Globulin 3.1 gm/dL (2.3-3.5); Glucose 96 mg/dL (74-106); Magnesium 1.8 mg/dL (1.6-2.6); Osmolality,Calculated 276 (275-295); Potassium 4.3 mMol/L (3.4-5.1); Salicylate < 3.0 mg/dL; Sodium 139 mMol/L (136-145); Thyroid Stimulating Hormone 1.81 uIU/mL (0.55-4.78); Total Protein 8.1 gm/dL (5.7-8.2); eGFR > 60 See Note
[2024-08-08] MEDS: DIPHTH,PERTUSS(ACELL),TET VAC 0.5 ML VIAL IMi (10:53)
[2024-08-08] MEDS: cephALEXin 250 MG CAPSULE 1000 MG PO (10:54)
[2024-08-08] MEDS: BACITRACIN OINT 1 GM PACKET TOP (10:55)
--- NOTE | 2024-08-08 11:14 | PC.NURSE ---
RN CALLED AND SPOKE TO IRWIN ASH FROM [facility] AT THIS TIME, PER PT'S REQUEST; PT ASKING TO SPEAK TO WITH IRWIN ASH. PT NOW SPEAKING TO IRWIN ASH AT THIS TIME VIA PHONE.
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
[2024-08-08 11:51] LABS: Amphetamine/Methamp Scrn,U Negative (Negative); Barbiturate Screen,Urine Negative (Negative); Benzodiazepines Screen,Urine Negative (Negative); Benzoylecgonine Screen, Ur Negative (Negative); Fentanyl Screen,Urine Negative (Negative); Opiate Screen,Urine Negative (Negative); THC Screen,Urine Negative (Negative)
--- NOTE | 2024-08-08 12:39 | PC.CC ---
Pt Clarence Montes, is a 24-year-old male brought in to ED by PPD on a 5150 hold DTS. Mathematics Instructor met with pt to complete psychiatric assessment. Pt presents well-mannered and well-groomed. Pt easily engaged and was able to sit up on gurney and make direct eye contact as encounter progressed. Pt is noted to be alert and oriented to person, current place and year. Pt reports he is currently living in a residential with hussein Blevins [phone] [place] [address] [place] [id number]. Pt is developmentally disabled, mental health hx provided by hussein Blevins. Guardian reported client has had hx of x8 emergency room visits in the past week in a half. Pt is connected to [facility] (next abdulaziz 08/18/2024) and [facility] (next abdulaziz 08/26/2024). ED Plugman encountered Pt for mental health evaluation. ED Plugman used the following interventions: empathy, unconditional positive regard, Socratic dialogue including clarifying and probing questions. Pt was receptive and was able to disclosed he is ready to return home with hussein Cardenas and does not feel like AWOLing or SH. ED Plugman used C-SSRS to support process and assessed for SI/HI, self-harming behaviors, method, access to lethal means, plan/intent. Pt was responsive to mental health evaluation and denied plan/intent for SI/HI. 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 ED Plugman consulted with stock ranch supervisor Sandra Ko and it was agreed rescind 5150 hold and safety plan with client due to client denying SI/HI with no plan/intent. ED Plugman contacted [facility] emergency response in hopes to receive support with discharge planning for Pt, awaiting return call to ER cell [phone].
--- NOTE | 2024-08-08 12:54 | EDNOTE_ITS ---
ED Psych RME/HPI General Chief Complaint: Psychiatric Symptoms Stated Complaint: HOLD, MENTAL EVAL Time Seen by Provider: 08/08/24 09:51 Arrival date/time: 08/08/24 09:47 RME / HPI RME / HPI Narrative: This section includes all my notes and documentations, including HPI, PE, and ED course. Fausto Parra MD HPI: 24-year-old male here to be evaluated after he cut his left forearm in multiple areas just prior to arrival. He lives in a senior living. Unable to obtain history from the patient due to developmental delay. And he doesn't answer questions my questions. ROS: Can't obtain from the patient due to developmental delay. Physical Exam: General: Alert. No acute distress. Eyes: Conjunctivae and lids clear. EOMI. PERRL. ENT: No nasal congestion. Pharynx normal. Tympanic membrane normal bilaterally. Neck: Supple. Heart: RRR. Lungs: No respiratory distress. Good air movement. No rhonchi, wheezing, rales. Abdomen: Soft and nontender. Skin: Warm and dry. In the left forearm, there are many horizontally linear abrasions, varying size and shape. Neuro: Alert. Cranial Nerves II-XII grossly intact. No peripheral motor deficits. I reviewed all diagnostic test results. Blood tests and urine tests unremarkable. At this point, diagnoses include left forearm abrasions from self injury. Treatment here included Tdap, Keflex, and wound care with topical ABX. After evaluation, our ED animal care technician recommended discharging the patient back to the senior living. Based on my best medical judgment, made decision no further evaluation or treatment indicated at this time. Staff understands and agrees to the discharge instructions customized and printed, see below. Discharge instructions from Dr. Parra:? -- Keep the current dressing (for left forearm abrasion) intact for 24 hours. -- After 24 hours, change the dressing once daily. -- First remove the dressing gently.? If it does not come off easily, run water through it until it comes off easily. -- Then gently wash with soap and water. -- After completely drying, apply antibiotic ointment and new dressing. -- Keflex 12 prevent severe infection. -- See a private doctor on 08/10/2024 for recheck, to make sure you are healing without any complication. -- Seek immediate medical care with fever, spreading redness from a wound, or with any concerns. Fausto Parra MD Related Data Previous Rx's ?Medication ?Instructions ?Recorded famotidine 20 mg tablet (Pepcid) 20 mg PO BID #14 tabs 08/06/24 cephalexin 500 mg capsule 500 mg PO BID 2 days #4 caps 08/08/24 Allergies Allergy/AdvReac Type Severity Reaction Status Date / Time No Known Allergies Allergy Verified 11/30/21 13:27 Course Quality Measures none Orders Category Date Time Status Wound Care [Wound Care] NOW Care 08/08/24 09:55 Completed Acetaminophen Stat Lab 08/08/24 10:04 Completed Alcohol, Blood Medical Stat Lab 08/08/24 10:04 Completed CBC Stat Lab 08/08/24 10:04 Completed CMP [Comprehensive Metabolic Panel] Stat Lab 08/08/24 10:04 Completed Drug Screen,Urine Stat Lab 08/08/24 11:02 Completed Magnesium Stat Lab 08/08/24 10:04 Completed Salicylate Stat Lab 08/08/24 10:04 Completed TSH [Thyroid Stimulating Hormone] Stat Lab 08/08/24 10:04 Completed Bacitracin Oint pkt Med 08/08/24 09:54 Discontinued 1 gm TOP X1 ONE Tet,Diphth,Pertuss(Acell)-Tdap [Boostrix Vacc] Med 08/08/24 09:54 Discontinued 0.5 ml IMI .ONCE ONE cephALEXin [Keflex] Med 08/08/24 09:54 Discontinued 1,000 mg PO X1 ONE Vital Signs Vital signs: Vital Signs Temperature 99.0 F 08/08/24 10:10 Pulse Rate 76 08/08/24 10:10 Respiratory Rate 17 08/08/24 10:10 Blood Pressure 110/73 08/08/24 10:10 Pulse Oximetry (%) 98 08/08/24 10:10 Oxygen Delivery Method Room Air 08/08/24 10:10 Psych Patient data External records reviewed:: [facility] previous records Clinical information provided by:: law enforcement and principal cloud architect Social determinants that could affect healthcare access:: mental health Patient has the following chronic illnesses:: Developmental delay and frequent episodes of self cut How is presenting disease/condition affected by chronic disease/condition?: exacerbated by Evaluation data The following diagnostics were reviewed and interpreted by me:: lab results Lab and/or radiology exams considered but not ordered:: None Interpretation Summary: Unremarkable blood and urine tests Medications / Prescriptions Medications or Prescriptions considered but not ordered:: None Medication administrations:: Medication Administration History Discontinued Medications Bacitracin (Bacitracin Oint 1 Gm Packet) 1 gm TOP X1 ONE Stop: 08/08/24 09:55 Last Admin: 08/08/24 10:55 Dose: 1 gm Documented By: GIOVANNY Comments: APPLIED OVER PT'S L FOREARM Cephalexin HCl (Cephalexin 250 Mg Capsule) 1,000 mg PO X1 ONE Stop: 08/08/24 09:55 Last Admin: 08/08/24 10:54 Dose: 1,000 mg Documented By: GIOVANNY Diphtheria/Tetanus/Acell Pertussis (Diphth,Pertuss(Acell),Tet Vac 0.5 Ml Vial) 0.5 ml IMi .ONCE ONE Stop: 08/08/24 09:55 Last Admin: 08/08/24 10:53 Dose: 0.5 ml Documented By: GIOVANNY Tdap and Keflex and topical ABX Consultations Consultation(s) initiated? (list below): No Diagnosis Psych Differential Diagnosis: acute psychosis, suicidal ideation, bipolar disorder, depression, drug-induced psychotic disorder and acute anxiety Most likely diagnosis given after review of the tests above:: Left forearm abrasion Admission Indicated Admission indicated?: not indicated Explain why admission is indicated or not indicated:: Admission criteria not met Admission Request Was there a request for admission?: No Disposition Plan Disposition Plan: Discharge Discharge Attestation Discharge Attestation: The patient and all family members were given an opportunity to ask questions and understood the discharge instructions. Discharge instructions specifically effects, indications for sooner follow up or return to the emergency department, and the expected course of current diagnosis. Patient condition: Stable Discharge Plan Plan Patient Disposition: HOME (Self Care) Prescriptions/Referrals Prescriptions/Med Rec: New cephalexin 500 mg capsule 500 mg PO BID 2 Days Qty: 4 0RF No Action famotidine [Pepcid] 20 mg tablet 20 mg PO BID Qty: 14 0RF Referrals: No Primary/Family,Physician [Primary Care Provider] - In 1 week Problem List Clinical Impression: Abrasion forearm Patient/Caregiver Discharge Instructions Discharge Activity: activity as tolerated Education Materials: ED Abrasions Additional Instructions: Discharge instructions from Dr. Parra:? -- Keep the current dressing (for left forearm abrasion) intact for 24 hours. -- After 24 hours, change the dressing once daily. -- First remove the dressing gently.? If it does not come off easily, run water through it until it comes off easily. -- Then gently wash with soap and water. -- After completely drying, apply antibiotic ointment and new dressing. -- Keflex 12 prevent severe infection. -- See a private doctor on 08/10/2024 for recheck, to make sure you are healing without any complication. -- Seek immediate medical care with fever, spreading redness from a wound, or with any concerns. Print Language: Belarusian Stand Alone Forms: Mayra Award Info., Patient Portal Info Letter
--- NOTE | 2024-08-08 12:59 | PC.CC ---
ED Forensic Toxicologist received phone call from [facility] emergency repose Sandy Vargas. [facility] informed greeting card writer that extra support was granted to hussein Blevins and assisted will be available to receive Pt as soon as discharge is granted. Clipper Machine spoke with Theresa Blevins and guardian will be available to tile picker Pt with in the hour.
== END 2024-08-08 15:12 | disposition home or self-care (01) ==
PROVIDERS: Emergency Provider Emergency Medicine
DX: S50.812A Abrasion of left forearm, initial encounter (principal); X78.9XXA Intentional self-harm by unspecified sharp object, initial encounter; Z23 Encounter for immunization
CPT/HCPCS: 36415; 80053; 80307; 80320; 80329; 83735; 84443; 85025; 90471; 90715; 90839; 96127; 99284; A9270; G0480

== ENCOUNTER 2024-08-30 11:55 | Emergency (ER) | payer MEDICAID, SELFPAY ==
[2024-08-30 12:01] VITALS: BP 121/84; PULSE 115; RESP 20; TEMP 36.8; O2SAT 97
--- NOTE | 2024-08-30 12:24 | EDNOTE_ITS ---
ED General RME/HPI General Chief complaint: Suicidal Stated complaint: HOLD Time Seen by Provider: 08/30/24 12:19 Arrival date/time: 08/30/24 11:55 RME / HPI RME / HPI narrative: 24-year-old male with depression and recurrent psychiatric issues who presents with suicidal ideation where he had superficial cuts to his forearm with a razor. Law enforcement witnessed him brandishing a razor of which they secured and he was transported here in restraint/handcuffs. They searched the rest of his body and there are no other weapons. He states he still feels depressed and would like to kill himself. He denies alcohol or drugs Related Data Previous Rx's ?Medication ?Instructions ?Recorded famotidine 20 mg tablet (Pepcid) 20 mg PO BID #14 tabs 08/06/24 Allergies Allergy/AdvReac Type Severity Reaction Status Date / Time No Known Allergies Allergy Verified 11/30/21 13:27 Review of Systems Review of Systems Systems Reviewed: All systems reviewed, normal except as documented ED Exam Narrative Physical exam: GENERAL APPEARANCE: AxOx4, generally well-appearing, no acute distress, pleasant, has a childlike demeanor HEENT: NC, AT. MMM. EOMI, clear conjunctiva, oropharynx clear. NECK: Supple without lymphadenopathy. No stiffness or restricted ROM. HEART: Normal rate and regular rhythm, normal S1/S1, no m/r/g LUNGS: CTAB, moving air well. No crackles or wheezes are heard. ABDOMEN: Soft, nontender, nondistended with good bowel sounds heard. BACK: No midline C/T/L spine pain or deformity, No CVAT, no obvious deformity. EXTREMITIES: Without cyanosis, clubbing or edema. MUSCULOSKELETAL: FROM of all major joints, no chest tenderness NEUROLOGICAL: Grossly nonfocal. Alert and oriented, moving all 4 extremities. CN not formally tested but appear grossly intact. Observed to ambulate with normal gait. Skin: Warm and dry without any rash multiple superficial scratches to the volar aspect of his left forearm, none require suture repair., Course Quality Measures none Vital Signs Vital signs: Vital Signs Temperature 98.3 F 08/30/24 12:01 Pulse Rate 115 H 08/30/24 12:01 Respiratory Rate 20 08/30/24 12:01 Blood Pressure 121/84 08/30/24 12:01 Pulse Oximetry (%) 97 08/30/24 12:01 Oxygen Delivery Method Room Air 08/30/24 12:01 SpO2 97% on room air, patient is not hypoxic MDM Patient data External records reviewed:: [facility] previous records Clinical information provided by:: patient Social determinants that could affect healthcare access:: none Patient has the following chronic illnesses:: Developmental delay How is presenting disease/condition affected by chronic disease/condition?: exacerbated by Evaluation data The following diagnostics were reviewed and interpreted by me:: other (specify) (Workup not indicated) Lab and/or radiology exams considered but not ordered:: None Interpretation Summary: Not applicable Medications Medications considered but not ordered:: As per narrative Medication administrations:: None Consultations Consultation(s) initiated? (list below): Yes Diagnosis Differential Diagnosis ED Complaint MDM: Suicidal ideation, development today, impulse control disorder Most likely diagnosis given after review of the tests above:: Suicidal ideation, superficial lacerations Admission Indicated Admission indicated?: not indicated Explain why admission is indicated or not indicated:: As per narrative Admission Request Was there a request for admission?: No Disposition Plan Disposition Plan: Discharge Discharge Attestation Discharge Attestation: The patient and all family members were given an opportunity to ask questions and understood the discharge instructions. Discharge instructions specifically effects, indications for sooner follow up or return to the emergency department, and the expected course of current diagnosis. Patient condition: Stable Medical Decision Making MDM Narrative MDM Narrative: Clarence presents to the emergency department with self-inflicted, superficial scratch lacerations to his left forearm and was picked up with an actual razor in his hand by PD. He is on a 5150 hold where on reviewed electronic medical record this is very common for him. Including lacerations and his tetanus is up-to-date. There is no indication for laceration repair as they are superficial. He was cleared by crisis team assessment and safety plan has been created with his detention. Differential Diagnosis Differential Diagnosis: Suicidal ideation, development today, impulse control disorder Discharge Plan Plan Patient Disposition: HOME (Self Care) Prescriptions/Referrals Prescriptions/Med Rec: No Action famotidine [Pepcid] 20 mg tablet 20 mg PO BID Qty: 14 0RF Referrals: No Primary/Family,Physician [Primary Care Provider] - In 1 week Problem List Clinical Impression: Depression Patient/Caregiver Discharge Instructions Education Materials: ED Depression Additional Instructions: Follow-up as outlined with your safety plan. You can return to the emergency department sooner if symptoms worsen or if you notice any new, concerning issues. Print Language: Cameroonian Stand Alone Forms: Mayra Award Info., Patient Portal Info Letter
[2024-08-30 13:28] VITALS: BMI 26.5
[2024-08-30 15:07] VITALS: BP 108/67; PULSE 74; RESP 17; TEMP 36.8; O2SAT 97
--- NOTE | 2024-08-30 16:30 | PC.SS ---
Addendum entered by Anitha Chester 08/31/24 07:39: Chart accessed to document psych assessment. Original Note: Patient brought in by [facility] on a 5150 Hold-DTS. Patient was cutting his left forearm with shaving razor. Patient is AOx2. He explains self-harmed this morning due to being told what to do alf staff. Patient states he hates being told what to do. Patient scored 21/25, high risk on CSSRS. Patient denies having active SI. He reports self-harming because he felt sad and misses his mother and sibling. Patient denies having method, plan or intent. Patient is a client of [facility]. SS spoke to Theresa senior risk manager [phone], she expressed concerns with client's safety. She disclosed client had eloped 2x this morning and self-harmed upon his return to the home. She reports patient does not have access to sharps or medications in the home. She believes patient stole shaving razor from store. Theresa stated she believes client needs [facility] to meet his needs. She reports having informed [facility] today and is considering giving a 30 day notice if support is not provided. SS also spoke to [facility] co-database administration project manager, he informed SS his staff is available to picker packer patient at discharge. [facility] SS [facility] patient does not meet criteria for involuntary hold at this time. Patient denied active SI, method, plan, or intent. Patient has diagnosis of autism and a learning disability. Patient is not connected with a mental health provider, but has agreed to allow this music writer to make referrals to [facility] Patient receives psychiatric services at [facility]. Tank Calibrator SR was consulted for case consultation. Patient does not meet criteria for an involuntary hold; 5150 Hold-DTS rescinded. Safety Plan completed at bedside. Community Resource Document provided at bedside. [facility] Ann-Marie [phone] was contacted; she reported alf staff is willing to accept patient back to their facility. Patient has meeting with the meat service team member and complex case manager 08/31/24. contacted [facility] to confirm discharge plan. Favian stated staff Estrella will be providing transportation. A service meeting was to be scheduled for tomorrow 08/31/2024 with [facility] complex case manager and meat service team member. Favian also shared he will be meeting with [employer] for guidance. Favian was provided with Tank Calibrator SR contact information and informed him she would be available for consult.
[2024-08-30 17:35] VITALS: BP 125/63; PULSE 68; RESP 18; TEMP 36.6; O2SAT 100
== END 2024-08-30 18:08 | disposition home or self-care (01) ==
PROVIDERS: Emergency Provider Emergency Medicine
DX: R45.851 Suicidal ideations (principal); F32.A Depression, unspecified
CPT/HCPCS: 96127; 99283

== ENCOUNTER 2024-08-31 18:39 | Emergency (ER) | payer MEDICAID, SELFPAY ==
[2024-08-31 18:46] VITALS: BP 114/79; PULSE 110; RESP 18; TEMP 37.4; O2SAT 96
--- NOTE | 2024-08-31 18:48 | PC.NURSE ---
[facility] CALLED AND NOTIFIED THAT PATIENT WAS BROUGHT INTO ER BY [facility].
[2024-08-31 19:47] VITALS: BMI 24.7
--- NOTE | 2024-08-31 20:08 | PD.EDPSYCH ---
ED Psych RME/HPI General Chief Complaint: Psychiatric Symptoms Stated Complaint: HOLD Time Seen by Provider: 08/31/24 19:20 Arrival date/time: 08/31/24 18:39 24 year old male present to emergency room via PD for medical clearance/hold. Per PD noted suicidal and attempt to harm himself. SEVERITY: Symptoms are described as being severe with limitations on activities of daily living CONTEXT: The patient is unable to identify any inciting events. DURATION/TIMING: The symptoms started approximately 1 day ASSOCIATED SYMPTOMS: The patient is unable to identify any other associated symptoms. MODIFYING FACTORS: The patient is unable to identify any alleviating or aggravating symptoms. PERTINENT ROS: no fevers, no cough, no pleuritic pain, no ripping or tearing sensations, denies any lower extremity edema and no unilateral swelling, no chest pain/shortness of breath no nausea,vomiting, diarrhea, no dizziness/headache no rash no loc/syncope episode REVIEW OF SYSTEMS: See History of Present Illness - with the exception of those mentioned in the history of present illness, all other systems reviewed and reported as negative GENERAL: In general the patient is awake, interactive, in an emergency department gurney. HEAD/EYES/EARS/NOSE/THROAT: normo-cephalic, atraumatic, mucus membranes are moist, anicteric, palpebral conjunctiva is pink, trachea is midline. CARDIOVASCULAR: regular rate and regular rhythm, no murmurs, heart sounds are not distant, strong pulses in all four extremities that are equal and symmetric bilateral upper and lower extremities, normal capillary refill. CHEST/PULMONARY: normal chest rise and fall, good air movement, clear to auscultation bilaterally, normal inspiratory to expiratory ratios without evidence of respiratory distress. NECK: No midline/Paraspinal tenderness, no step off ROM/Strenght intact No Kernig and bruzinski sign. No trauma ABDOMEN: soft, not tender, no masses appreciated BACK: normal range of motion without pain. NEUROLOGICAL: cranio-facial features are symmetric, moves all four extremities equally without obvious limitations or weakness. EXTREMITY: +left upper arm + scratch healing/baer. no tenderness to palpation over the long bones or large joints of the bilateral lower extremities, no joint swelling, no joint erythema, no signs of trauma, no unilateral leg swelling and no peripheral edema. SKIN: warm, dry, well-perfused, no jaundice, no rash, no telangiectasias or petechia. PSYCH: calm, cooperative, no evidence of psychosis or agitation Related Data Previous Rx's ?Medication ?Instructions ?Recorded famotidine 20 mg tablet (Pepcid) 20 mg PO BID #14 tabs 08/06/24 Allergies Allergy/AdvReac Type Severity Reaction Status Date / Time No Known Allergies Allergy Verified 11/30/21 13:27 Course Course Course Narrative: psyh hold for crisis to evaluted/placement pt is medical cleared for evaluation by crisis. Quality Measures none Orders Category Date Time Status Psychosocial assessment ONCE Care 08/31/24 20:12 Completed Acetaminophen Stat Lab 08/31/24 20:23 Completed Alcohol, Blood Medical Stat Lab 08/31/24 20:23 Completed CBC Stat Lab 08/31/24 20:23 Completed CMP [Comprehensive Metabolic Panel] Stat Lab 08/31/24 20:23 Completed Drug Screen,Urine Stat Lab 08/31/24 21:01 Completed Salicylate Stat Lab 08/31/24 20:23 Completed Acetaminophen Tab [Tylenol Tab] Med 09/01/24 11:06 Discontinued 650 mg PO X1 ONE Vital Signs Vital signs: Vital Signs Temperature 99.3 F 08/31/24 18:46 Pulse Rate 110 H 08/31/24 18:46 Respiratory Rate 18 08/31/24 18:46 Blood Pressure 114/79 08/31/24 18:46 Pulse Oximetry (%) 96 08/31/24 18:46 Oxygen Delivery Method Room Air 08/31/24 18:46 Psych Patient data External records reviewed:: None Clinical information provided by:: patient Social determinants that could affect healthcare access:: mental health Patient has the following chronic illnesses:: depression How is presenting disease/condition affected by chronic disease/condition?: exacerbated by Evaluation data The following diagnostics were reviewed and interpreted by me:: lab results Lab and/or radiology exams considered but not ordered:: none Interpretation Summary: cbc/cmp wnl alcohol, drug negative Medications / Prescriptions Medications or Prescriptions considered but not ordered:: none Medication administrations:: Medication Administration History Discontinued Medications Acetaminophen (Acetaminophen 325 Mg Tablet) 650 mg PO X1 ONE Stop: 09/01/24 11:07 Last Admin: 09/01/24 11:09 Dose: 650 mg Documented By: GM none Consultations Consultation(s) initiated? (list below): No Diagnosis Psych Differential Diagnosis: acute psychosis, suicidal ideation, bipolar disorder, depression, drug-induced psychotic disorder and acute anxiety Most likely diagnosis given after review of the tests above:: Suicidal Attempt Admission Indicated Admission indicated?: not indicated Explain why admission is indicated or not indicated:: none Admission Request Was there a request for admission?: No Disposition Plan Disposition Plan: Transfer Discharge Plan Plan Patient Disposition: HOME (Self Care) Patient condition on transfer: Stable Prescriptions/Referrals Prescriptions/Med Rec: No Action famotidine [Pepcid] 20 mg tablet 20 mg PO BID Qty: 14 0RF Problem List Clinical Impression: Suicide attempt Patient/Caregiver Discharge Instructions Education Materials: ED Suicidal, 72-Hour Hold Additional Instructions: Follow-up with your safety plan as outlined. Feel free return to the emergency department sooner if symptoms worsen or if you notice any new, concerning issues. Print Language: Belarusian Stand Alone Forms: Mayra Award Info., Patient Portal Info Letter
[2024-08-31 20:13] VITALS: BP 109/62; PULSE 65; RESP 17; TEMP 37.2; O2SAT 96
[2024-08-31 20:31] LABS: Basophils # (Auto) 0.1 Thou/mm3 (0.0-0.2); Basophils % (Auto) 1 % (0-2.5); Eosinophils # (Auto) 0.2 Thou/mm3 (0.0-0.5); Eosinophils % (Auto) 2 % (0-10); Hematocrit 47.1 % (41.0-53.0); Hemoglobin 16.1 g/dL (13.5-16.0); Immature Granulocytes % (Auto) 0 % (0-0); Immature Granulocytes Auto 0.03 Thou/mm3 (0.00-0.00); Lymphocytes # (Auto) 2.7 Thou/mm3 (1.0-4.8); Lymphocytes % (Auto) 21 % (10-50); Mean Corpuscular HGB Conc 34.2 g/dl (31.0-37.0); Mean Corpuscular Hemoglobin 29.6 pg (25.0-35.0); Mean Corpuscular Volume 87 fL (80-100); Monocytes # (Auto) 0.9 Thou/mm3 (0.0-0.8); Monocytes % (Auto) 7 % (0-12); Neutrophils % (Auto) 70 % (37-80); Nucleated Red Blood Cell % 0 /100 WBC (0); Platelet Count 156 Thou/mm3 (140-440); Red Blood Count 5.44 Miln/mm3 (4.50-5.90)
[2024-08-31 21:11] LABS: Alanine Aminotransferase 61 U/L (10-49); Albumin, Serum 4.5 gm/dL (3.5-5.0); Albumin/Globulin Ratio 1.4 (1.2-2.2); Alkaline Phosphatase 89 U/L (46-116); Anion Gap 8 (7-16); Aspartate Amino Transferase 27 U/L (0-34); BUN/Creatinine Ratio 13 Ratio (12-20); Bilirubin,Total 0.5 mg/dL (0.3-1.2); Blood Urea Nitrogen 13 mg/dL (9-23); Calcium 9.8 mg/dL (8.3-10.6); Calcium (Corrected) 9.8 mg/dL (8.5-10.1); Carbon Dioxide 27.2 mMol/L (20.0-31.0); Chloride 104 mMol/L (98-107); Estimated Creatinine Clearance 93.3 mL/min (>60); Globulin 3.2 gm/dL (2.3-3.5); Glucose 102 mg/dL (74-106); Osmolality,Calculated 277 (275-295); Potassium 3.5 mMol/L (3.4-5.1); Salicylate < 3.0 mg/dL; Sodium 139 mMol/L (136-145); Total Protein 7.7 gm/dL (5.7-8.2); eGFR > 60 See Note
[2024-08-31 21:27] LABS: Alcohol, Blood Medical < 3.0 mg/dL (0-10.0)
[2024-08-31 21:33] LABS: Amphetamine/Methamp Scrn,U Negative (Negative); Barbiturate Screen,Urine Negative (Negative); Benzodiazepines Screen,Urine Negative (Negative); Benzoylecgonine Screen, Ur Negative (Negative); Fentanyl Screen,Urine Negative (Negative); Opiate Screen,Urine Negative (Negative); THC Screen,Urine Negative (Negative)
[2024-08-31 21:50] LABS: Acetaminophen < 2.0 mcg/mL (10.0-20.0)
--- NOTE | 2024-08-31 23:07 | PD.EDADDENDU ---
Emergency Room Addendum <Karie Son - Last Filed: 09/01/24 05:24> Addendum Narrative: 2300: Care assumed from Deejay Valenzuela PA-C. Past medical, surgical, social and family history reviewed. Vitals and home medications reviewed. Results and treatment plan discussed. I will assume the care of the patient at this time and will follow the patient, pending crisis evaluation. Please refer to the emergency department record for history and examination from initial visit. Patient no acute distress. Visual exam the patient is resting comfortably without restraints. Abdomen without distention. Lungs patient without accessory muscle use. Skin without rash. OBSERVATION NOTE: The patient was placed in ED observation care at 08/31/24 at 2300 hours. The patient was placed in ED observation care because of pending crisis evaluation. The patients past medical history, social history, and family history were reviewed. The plan of care will include serial examinations. 0600: Care signed out to Dr. Fuentes (emergency physician). Past medical, surgical, social and family history reviewed. Vitals and home medications reviewed. Results and treatment plan discussed. They will assume the care of the patient at this time and will follow the patient, pending crisis evaluation. At this time, observation has ended. <Ann-Marie Preston MD - Last Filed: 09/01/24 05:59> Addendum Narrative: 2300: Care assumed from Deejay Valenzuela PA-C. Past medical, surgical, social and family history reviewed. Vitals and home medications reviewed. Results and treatment plan discussed. I will assume the care of the patient at this time and will follow the patient, pending crisis evaluation. Please refer to the emergency department record for history and examination from initial visit. Patient no acute distress. Visual exam the patient is resting comfortably without restraints. Abdomen without distention. Lungs patient without accessory muscle use. Skin without rash. OBSERVATION NOTE: The patient was placed in ED observation care at 08/31/24 at 2300 hours. The patient was placed in ED observation care because of pending transfer.. The patients past medical history, social history, and family history were reviewed. The plan of care will include serial examinations.
[2024-08-31 23:23] VITALS: BP 108/66; PULSE 71; RESP 18; TEMP 37.2; O2SAT 96
[2024-09-01 02:23] VITALS: BP 108/58; PULSE 91; RESP 18; TEMP 36.9; O2SAT 96
[2024-09-01 04:37] VITALS: BP 109/58; PULSE 60; RESP 17; O2SAT 96
[2024-09-01 06:14] VITALS: BP 107/63; PULSE 79; RESP 17; TEMP 36.8; O2SAT 97
[2024-09-01 09:46] VITALS: BP 103/61; PULSE 69; RESP 17; TEMP 36.8; O2SAT 98
--- NOTE | 2024-09-01 10:28 | PC.SS ---
Patient is a 24 year old male BIB [place] [employer] on a 5150 Hold by Officer Anurag #[id number] for DTS. Per hold, the patient was feeling upset and suicidal. Of note, after completing a chart review on patient?s history, the patient was recently brought to the ED on 5150 Hold. Per records, the patient has a history of coming in to ED for similar circumstances. On the most recent visits this month, the patient was cleared with a safety plan and referrals to mental health services. ? The patient comes from a Longterm and is aligned with [facility] services. Although the patient is not conserved. Patient has intellectual disability. Deniz met with patient [id number] to complete assessment. ASW introduced self, role, and reason for assessment. ASW disclosed limits of confidentiality as well. Patient appeared alert and oriented to self, place, and situation. Patient was pleasant and cooperative during the assessment. No signs of delusions, paranoia or visual hallucinations observed. Patient smiled and appeared content during the assessment. When asked what brought the patient into the ED, the patient reported ?residential sales brought me?. The patient was asked what the reason was and patient indicated ?I was being bad?. Patient then stated he hit his head and was brought to the ED. Patient informed ?I wanted attention? and ?I?m ready to go home now?. ?ASW explained process of mental health evaluation and patient continued to state he is ready to return home. Patient is currently denying SI and HI. The patient denies having audio or visual hallucinations. The patient reports being unsure if he has been psychiatrically placed in the past. The patient informs he seeks mental health services at [facility] in [place], reports he does not recall his provider?s name. Patient unable to provide if he has a diagnosis or taking medications. Patient?s toxicology report is negative, no signs of substance use. Patient reports being independent with ADL?s, able to ambulate. Patient informs he is willing to safety plan and follow up with mental health services providers. Patient reports being ready to go home. Patient provided verbal consent to contact Longterm cycle repairer, Theresa Blevins and service providers for connection to services. Collateral Contact: ASW spoke with Longterm cycle repairer, Theresa Blevins . ASW introduced self, role and reason for contact. In speaking with Theresa she informs the patient is connected to [facility], however not conserved. Per Theresa, the patient has been in her Longterm since May 2023. Theresa reports, [facility] has instructed her that as patient is an adult, he is unable to be held at Longterm and able to go into the Community, in which patient continuously coming to the ED. Theresa reports the patient took off yesterday from the correction to a gas station store in [place] and refused to return home. Theresa informs Law enforcement was contacted and patient was also observed at a bus stop in [place]. Per Theresa, the patient has an intellectual disability and unknown mental health diagnosis. Theresa reports the patient was previously taking Lexapro, which has now stopped and is now taking Benzotropine, oral with lowest dosage at night and Risperdal during the evening for impulsive behaviors, unknown dosage. Theresa states the patient recently connected to [facility] for mental health services and has follow up appointment next week on 09/09/24 at 12pm. Per Theresa, the patient recently changed primary care providers to [facility] in [place]. Theresa reports the patient receives SSI for placement and receives PNI monetary that is managed by her. Per Theresa, they prevent the patient to purchase harmful items, however have been unable to prevent the patient from buying items. Theresa was asked if willing to safety plan with the patient and appropriate referrals/services in place. Theresa was agreeable. After clinical consultation with Care [employer] Specialist, Alessandra Preciado LCSW, it was determined that the patient does not meet criteria for a 5150 Hold. The current [employer]PD Hold was rescinded. Patient to be cleared with Safety Plan. The patient was referred to [facility] [place], a crisis prevention and response Program. Amada with the [facility] informed they would reach out to the patient?s nutrition services associate at [facility] to initiate services on behalf of the patient. A referral to [facility] was recently sent out on recent ED visit and patient is to have follow up appointment on 08/09/24 at 12pm to engage in services. The patient and Theresa were both explained patient would be cleared with Safety Plan and appropriate services/resources. Patient to follow up with mental health services and aware should crisis occur the mobile crisis team or law enforcement could be contacted. ASW updated attending and bed side nurse on patient?s discharge plan.
--- NOTE | 2024-09-01 10:38 | PD.EDADDENDU ---
Emergency Room Addendum Addendum Narrative: 0600: Care assumed from Dr. Preston, the previous shift emergency physician. Past medical, surgical, social and family history reviewed. Vitals and home medications reviewed. I will assume the care of the patient at this time, pending mental health evaluation. Please refer to the emergency department record for history and examination from initial visit.? Nursing notes reviewed by me. Vital signs reviewed by me. [place] medical records reviewed by me. I reviewed ED visit from 08/30/2024 and yesterday 08/31/2024. Patient has been evaluated by mental health team and rescinded the hold. Patient has remained stable through ED course, will DC home. DISPOSITION: Home DIAGNOSIS: Suicidal attempt
[2024-09-01 10:46] VITALS: BP 100/62; PULSE 65; RESP 17; TEMP 36.8; O2SAT 98
[2024-09-01] MEDS: ACETAMINOPHEN 325 MG TABLET 650 MG PO (11:09)
== END 2024-09-01 13:39 | disposition home or self-care (01) ==
PROVIDERS: Physician Assistant; Emergency Provider Emergency Medicine
DX: T14.91XA Suicide attempt, initial encounter (principal)
CPT/HCPCS: 36415; 80053; 80307; 80320; 80329; 85025; 96127; 99284; A9270; G0480

== ENCOUNTER 2024-09-13 08:03 | Emergency (ER) | payer MEDICAID, SELFPAY ==
--- NOTE | 2024-09-13 08:05 | PC.NURSE ---
PT WAS BROUGHT IN BY [facility] FOR 5150 HOLD. PT LEFT GROUP HOME TO THE STORE TO BUY RAZORS TO CUT SELF BECAUSE HE WAS SAD AND MISSED HIS MOM. HX CUTTING. APON ARRIVAL PT SMILING ASKING WHICH DOCTOR WAS WORKING TODAY. I ASKED PT WHY HE WANTED TO HURT SELF HE STATED BECAUSE ANOTHER RESIDENT YELLED AT HIM. I ASK WHY DID THE OTHER RESIDENT YELL AT HIM, PER OFFICER PT WAS TRYING TO TAKE THE OTHER RESIDENTS MONEY SO HE CAN GO BUY RAZORS. FACILITY IS CURRENTLY WORKING ON SENDING PT TO A LOCK DOWN FACILITY SINCE THIS IN AN ON GOING ISSUE WITH HIM. PT IS COOPERATIVE WITH STAFF, SMILING, WANTING TO JOKE WITH STAFF. PT DOES NOT APPEAR TO BE IN ANY DISTRESS AT THIS TIME. SITTER AT BEDSIDE.
[2024-09-13 08:06] VITALS: BP 117/81; PULSE 86; RESP 16; TEMP 36.9; O2SAT 98
[2024-09-13 08:07] VITALS: BMI 26.6
--- NOTE | 2024-09-13 09:04 | PD.EDDEPRS ---
ED Psych RME/HPI General Chief Complaint: Depression Stated Complaint: MENTAL EVAL, HOLD Arrival date/time: 09/13/24 08:03 RME / HPI RME / HPI Narrative: 24 year old male with history of depression, recurrent psychiatric issues, and known to us presents to the ED BIB [employer] placed on a 5150 hold for suicidal ideation. Per officers 5150 report, patient had expressed wanting to cut himself with razor blades. No attempts were made. While in the ED patient denies any suicidal or homicidal ideations however does complain of vague abdominal pain. Related Data Previous Rx's ?Medication ?Instructions ?Recorded famotidine 20 mg tablet (Pepcid) 20 mg PO BID #14 tabs 08/06/24 Allergies Allergy/AdvReac Type Severity Reaction Status Date / Time No Known Allergies Allergy Verified 11/30/21 13:27 Review of Systems Review of Systems Narrative Review of Systems: GEN: No fever, no chills EYES: No discharge, no pain HEENT: No ear pain, no congestion, no sore throat PULM: No shortness of breath, no cough, no congestion CV: No chest pain, no palpitations GI: No nausea, no vomiting, no diarrhea, +vague abdominal pain, no constipation : No frequency, no urgency and no dysuria MUSC/SKEL No joint pain, no back pain SKIN: No rash PSYCH: No hallucinations, no SI, no HI HEME/LYMPH: No easy bleeding or bruising tendencies NEURO: No weakness, no headache Past Medical History Past Medical History CARDIAC: Negative Congestive Heart Failure RESPIRATORY: Negative Chronic Obstructive Pulmonary Disease (COPD) GENITOURINARY: Negative Renal Disease ENDOCRINE: Negative Diabetes Mellitus Type 1 or Diabetes Mellitus Type 2 PSYCHO/SOCIAL: Positive Depression OTHER HISTORY: Positive Developmental Delay Social History SMOKING STATUS: Never smoker ED Exam Narrative Physical exam: GENERAL APPEARANCE: Well hydrated, well nourished, in no acute distress. VITALS: All vitals were reviewed and the pulse ox is 98% on room air which is normal according to my interpretation. HEENT: Normocephalic, atramatic, EOMI, EACs are patent. There is no bulge or retraction. Throat without erythema or exudate. Moist oromucosa. No jaundice NECK: Supple, no JVD or bruits. CARDIOVASCULAR: Heart regular without S3-S4 or murmur. No rubs or gallops. LUNGS/CHEST: Clear to auscultation bilaterally. No rales, rhonchi, or wheezing. Normal inspection. ABDOMEN: Soft, nontender, with normal bowel sounds. No pulsatile masses. No rebound, rigidity, or guarding. No incarcerated hernia. Normal inspection and palpation. EXTREMITIES: Normal inspection and palpation. No edema, clubbing, or cyanosis. Intact CSM SKIN: Warm and dry without rashes. Normal inspection. MUSCULOSKELETAL: Normal inspection. No gross deformity, full ROM all extremities NEURO: Alert and oriented x3. Cranial nerves II through XII grossly intact. There are no other motor or sensory deficits noted. PSYCHIATRIC: Normal mood and affect. No SI or HI. Course Quality Measures none Vital Signs Vital signs: Vital Signs Temperature 98.4 F 09/13/24 08:06 Pulse Rate 86 09/13/24 08:06 Respiratory Rate 16 09/13/24 08:06 Blood Pressure 117/81 09/13/24 08:06 Pulse Oximetry (%) 98 09/13/24 08:06 Oxygen Delivery Method Room Air 09/13/24 08:06 Psych MDM Narrative MDM Narrative:: IYanet, am scribing for and in the presence of Dr. Valenzuela. Patient did not overdose. Patient did not cut himself. In fact when I saw him he was alert awake and pleasant and smiling. I saw no cuts. Abdominal exam is perfectly normal. Nontender. No rebound. No guarding. No distention. In the emergency department the patient was seen and evaluated by mental health/social work msw. And she determined that the patient can be going home. Patient data External records reviewed:: [facility] previous records (I reviewed ED visit on 08/31/2024) Clinical information provided by:: patient and law enforcement (5150 report ) Social determinants that could affect healthcare access:: mental health Patient has the following chronic illnesses:: Developmental delay, recurrent psych issues How is presenting disease/condition affected by chronic disease/condition?: exacerbated by Evaluation data The following diagnostics were reviewed and interpreted by me:: other (specify) (No diagnostics performed ) Lab and/or radiology exams considered but not ordered:: None Interpretation Summary: N/A Medications / Prescriptions Medications or Prescriptions considered but not ordered:: None Medication administrations:: None Consultations Consultation(s) initiated? (list below): No Diagnosis Psych Differential Diagnosis: acute psychosis, suicidal ideation, bipolar disorder, depression, drug-induced psychotic disorder and acute anxiety Most likely diagnosis given after review of the tests above:: Depression Admission Indicated Admission indicated?: not indicated Admission Request Was there a request for admission?: No Disposition Plan Disposition Plan: Discharge Discharge Attestation Discharge Attestation: The patient and all family members were given an opportunity to ask questions and understood the discharge instructions. Discharge instructions specifically effects, indications for sooner follow up or return to the emergency department, and the expected course of current diagnosis. Patient condition: Stable Discharge Plan Plan Patient Disposition: HOME (Self Care) Disposition Comment: Stable for DC Prescriptions/Referrals Prescriptions/Med Rec: No Action famotidine [Pepcid] 20 mg tablet 20 mg PO BID Qty: 14 0RF Referrals: Humera Veloz NP [Primary Care Provider] - In 1 week Problem List Clinical Impression: Depression Patient/Caregiver Discharge Instructions Education Materials: ED Depression Additional Instructions: Follow the instruction given you by mental health cue worker. Return the nearest emergency department if any problem. Also follow-up with your psychiatrist/psychologist Print Language: Portuguese Stand Alone Forms: Mayra Award Info., Patient Portal Info Letter
--- NOTE | 2024-09-13 09:40 | PC.CC ---
Patient is a 24 year-old male who was brought in by [place] [employer] Officer Porter on a 5150-hold for Danger to Self. CLIFFORDWSarah made [id number] contact with patient. ASW introduced self, role, and reason for visit. Patient appeared alert and oriented to self, location, and situation.?Patient was pleasant and engaged in initial assessment. Patient is a [facility] client living in a [facility] home. Patient is developmentally delayed. Patient stated, I want to go home because were having a BBQ. Patient reports earlier he was feeling suicidal, but denied currently having suicidal and homicidal ideations. Patient denied visual and auditory hallucinations. ASW made contact with staff Edmar Berrios who reports patient was seen by his psychiatrist on 09/10/2024 and receives mental health services at [facility]. Patient has started in home services with [facility]. [facility] is coming to the home 3-4 times a week for 3-6 hours. Patient is compliant with his psychotropic medications: Risperidone 25mg and Clonidine 1mg. Upon clinical consultation with Alessandra BURNHAM the patient does not meet criteria for 5150-hold. 5150-hold will be rescinded with safety plan. The safety plan is for patient to return back to [facility] home with extra supervision to be provided for the next 72 hours. All medications to continue to be locked all sharps be secured, there are no firearms in the home. Patient to follow up with [facility] and continue to participate in [facility] program.
[2024-09-13 10:37] VITALS: BP 94/62; PULSE 60; RESP 20; TEMP 36.6; O2SAT 97
== END 2024-09-13 10:52 | disposition home or self-care (01) ==
PROVIDERS: Emergency Provider Emergency Medicine; PCP Nurse Practitioner Women's Health
DX: F32.A Depression, unspecified (principal)
CPT/HCPCS: 90839; 96127; 99284

== ENCOUNTER 2024-09-14 14:19 | Emergency (ER) | payer MEDICAID, SELFPAY ==
[2024-09-14 14:31] VITALS: BP 124/88; PULSE 119; RESP 19; TEMP 37.3; O2SAT 97
[2024-09-14 14:34] VITALS: BMI 26.5
--- NOTE | 2024-09-14 14:52 | EDNOTE_ITS ---
ED General RME/HPI General Chief complaint: Psychiatric Symptoms Stated complaint: MEDICAL CLEARANCE Time Seen by Provider: 09/14/24 14:52 Arrival date/time: 09/14/24 14:19 CC: 5150 HPI patient presents the ER via PD in handcuffs, the patient eloped from his senior care, the patient has intellectual function of a 14-year-old is a grown adult is seen here yesterday for suicidal ideation today PD reports the patient but razor blades but denies suicidal ideation. Yesterday it was reported that the patient was thinking of buying razor blades and had suicidal ideation. Today the patient is awake alert very cooperative direct eye contact stating he does not want to harm himself or anybody else. Related Data Previous Rx's ?Medication ?Instructions ?Recorded famotidine 20 mg tablet (Pepcid) 20 mg PO BID #14 tabs 08/06/24 Allergies Allergy/AdvReac Type Severity Reaction Status Date / Time No Known Allergies Allergy Verified 09/14/24 14:48 Review of Systems Review of Systems Narrative Review of Systems: GEN: No fever, no chills, no weight loss EYES: No discharge, no visual changes, no pain HEENT: No ear pain, no congestion, no sore throat PULM: No shortness of breath, no cough, no congestion CV: No chest pain, no dyspnea on exertion, no palpitations GI: No nausea, no vomiting, no diarrhea, no pain, no constipation : No frequency, no urgency, no dysuria MUSC/SKEL: No joint pain, no back pain SKIN: No rash PSYCH: No hallucinations, no depression HEME/LYMPH: No easy bleeding or bruising tendencies NEURO: No weakness, no headache Past Medical History Past Medical History CARDIAC: Negative Congestive Heart Failure RESPIRATORY: Negative Chronic Obstructive Pulmonary Disease (COPD) GENITOURINARY: Negative Renal Disease ENDOCRINE: Negative Diabetes Mellitus Type 1 or Diabetes Mellitus Type 2 PSYCHO/SOCIAL: Positive Depression OTHER HISTORY: Positive Developmental Delay Social History SMOKING STATUS: Never smoker ED Exam Narrative Physical exam: [General: Not in any acute distress Head normocephalic HEENT: Within acceptable limits Neck is supple nontender Chest equal chest rise nontender to palpation Respiratory: Clear to auscultation no wheezes crackles or rubs CV: Rate rhythm is regular no murmurs rubs or clicks Abdomen is soft nontender no masses positive bowel sounds all 4 quadrants Back: No CVA tenderness no spinous process tenderness from cervical spine thoracic and lumbar spine Skin: Intact no petechiae rash induration ulceration or crepitus Extremities: Moving all extremity against resistance cap refill less than 2 seconds neurosensory intact Neuro: Awake alert oriented x2, person and place, Glascow coma 15 no focal deficits] Course Quality Measures none Vital Signs Vital signs: Vital Signs Temperature 99.1 F 09/14/24 14:31 Pulse Rate 119 H 09/14/24 14:31 Respiratory Rate 19 09/14/24 14:31 Blood Pressure 124/88 H 09/14/24 14:31 Pulse Oximetry (%) 97 09/14/24 14:31 Oxygen Delivery Method Room Air 09/14/24 14:31 [facility] Patient data External records reviewed:: [facility] previous records Clinical information provided by:: patient and law enforcement Social determinants that could affect healthcare access:: none Patient has the following chronic illnesses:: Mild developmental delay, depression How is presenting disease/condition affected by chronic disease/condition?: exacerbated by Evaluation data The following diagnostics were reviewed and interpreted by me:: other (specify) Lab and/or radiology exams considered but not ordered:: Patient's case discussed with showcase trimmer feel the patient does not need laboratory findings or diagnostic imaging for medical clearance. Interpretation Summary: Patient is medically cleared for psychiatric evaluation. Medications Medications considered but not ordered:: None Medication administrations:: None Consultations Consultation(s) initiated? (list below): No Diagnosis Differential Diagnosis ED Complaint MDM: Depression suicidal ideation homicidal ideation Most likely diagnosis given after review of the tests above:: Depression Admission Indicated Admission indicated?: not indicated Explain why admission is indicated or not indicated:: Stable for follow-up outpatient Admission Request Was there a request for admission?: No Disposition Plan Disposition Plan: Discharge Discharge Attestation Discharge Attestation: The patient and all family members were given an opportunity to ask questions and understood the discharge instructions. Discharge instructions specifically effects, indications for sooner follow up or return to the emergency department, and the expected course of current diagnosis. Patient condition: Stable Medical Decision Making Differential Diagnosis Differential Diagnosis: Depression suicidal ideation homicidal ideation Discharge Plan Plan Patient Disposition: HOME (Self Care) Patient condition on transfer: Stable Prescriptions/Referrals Prescriptions/Med Rec: No Action famotidine [Pepcid] 20 mg tablet 20 mg PO BID Qty: 14 0RF Problem List Clinical Impression: Depression Patient/Caregiver Discharge Instructions Education Materials: ED Depression Print Language: Swazi Stand Alone Forms: Mayra Award Info., Work/School Release, Patient Portal Info Letter PA/FOOD AND BEVERAGE ASSISTANT Supervising Physician PA/FOOD AND BEVERAGE ASSISTANT Supervising Physician: Guerrero Reyes ENP
--- NOTE | 2024-09-14 15:47 | PC.CC ---
Patient is a 24 year-old male who presents to the hospital on a 5150-Hold by [place] [employer] Officer Los for Danger to Self. Sarah WOLFF made tzxi-[id number] contact with patient. ASW introduced self, role, and reason for visit. Patient appeared alert and oriented to self, location, and situation.?Patient was pleasant and engaged in initial assessment. Patient smiled throughout assessment and made appropriate eye contact. Patient is a [facility] client living in a [facility] home. Patient is developmentally delayed. Patient stated, I want to go home I am ready I am not suicidal. Patient denied suicidal ideations or intent and plan. Patient denied homicidal ideations, visual and auditory hallucinations. ASW made contact with staff Theresa Henao who reports patient had came to the Emergency Department earlier today to say hi to the staff and believes patient could be attention seeking. Patient was seen by his psychiatrist on 09/10/2024 and receives mental health services at [facility]. Patient has started in home services with [facility]. [facility] is coming to the home 3-4 times a week for 3-6 hours. Patient is compliant with his psychotropic medications: Risperidone 25mg and Clonidine 1mg. Upon clinical consultation with Alessandra BURNHAM the patient does not meet criteria for 5150-hold. 5150-hold will be rescinded with safety plan. The safety plan is for patient to return back to [facility] home with extra supervision to be provided for the next 72 hours. All medications to continue to be locked all sharps be secured, there are no firearms in the home. Patient to follow up with [facility] and continue to participate in [facility] program.
== END 2024-09-14 17:02 | disposition home or self-care (01) ==
LOC: SERX 17:16
PROVIDERS: Emergency Provider Emergency Medicine
DX: Z04.6 Encounter for general psychiatric examination, requested by authority (principal); F32.A Depression, unspecified
CPT/HCPCS: 90839; 96127; 99283

== ENCOUNTER 2024-09-20 09:02 | Emergency (ER) | payer MEDICAID, SELFPAY ==
--- NOTE | 2024-09-20 09:05 | EDNOTE_ITS ---
ED General RME/HPI General Chief complaint: Flu Like Symptoms Stated complaint: COUGH Time Seen by Provider: 09/20/24 09:06 Arrival date/time: 09/20/24 09:02 RME / HPI RME / HPI narrative: DR. PEREZ MAIN ED EVALUATION: 24 year old male with past medical history significant for mild developmental delay, depression presents to the Emergency Department [facility] from a senior care with complaints of a cough, congestion, and body aches. Symptoms are mild to moderate. Denies any rashes, leg swelling, shortness of breath, or other symptoms at this time. Related Data Previous Rx's ?Medication ?Instructions ?Recorded famotidine 20 mg tablet (Pepcid) 20 mg PO BID #14 tabs 08/06/24 Allergies Allergy/AdvReac Type Severity Reaction Status Date / Time No Known Allergies Allergy Verified 09/20/24 09:11 Review of Systems Review of Systems Systems Reviewed: All systems reviewed, normal except as documented Narrative Review of Systems: GEN: No fever, no chills, no weight loss EYES: No discharge, no visual changes, no pain HEENT: No ear pain, + congestion, no sore throat PULM: No shortness of breath, + cough, + congestion CV: No chest pain, no dyspnea on exertion, no palpitations GI: No nausea, no vomiting, no diarrhea, no pain, no constipation : No frequency, no urgency and no dysuria MUSC/SKEL: + body aches, no back pain SKIN: No rash PSYCH: No hallucinations, no depression HEME/LYMPH: No easy bleeding or bruising tendencies NEURO: No weakness, no headache Past Medical History Past Medical History PSYCHO/SOCIAL: Positive Depression OTHER HISTORY: Positive Developmental Delay Social History SMOKING STATUS: Never smoker SUBSTANCE USE: does not use ALCOHOL: Never ED Exam Narrative Physical exam: Physical Exam: General: The vital signs were reviewed. O2 sat 98% on room air. Patient is or has cognitive delays with talks and answers questions talks about doing good and is not planning to escape this time the patient is non-toxic, in no apparent distress and appears healthy with a patent airway, no respiratory distress and has no apparent circulatory problems. Head & Scalp: Normocephalic, atraumatic. Face: Appears normal and is without lesions, deformity. Ears: Left external pinna appears normal. Right external pinna appears normal. Eyes: The sclera is anicteric. No obvious photophobia. The Left and Right Orbit/Lid/Conjunctiva appears normal without swelling, discoloration or injection. Nose: The nose is without deformity, discharge or tenderness; Throat: Appears normal. The mucous membranes are pink and moist without exudates, redness or mass seen. The tongue appears normal. Neck: The neck is supple and no apparent mass or adenopathy. Chest: The chest wall is normal in size and symmetry and has no chest wall tenderness or crepitus. The patient displays normal ventilator effort without retractions, accessory muscle use and has adequate air movement bilaterally with no wheezes and no rales. Cardiovascular: Regular rate and rhythm; No murmurs, rubs, or gallops; Gastrointestinal: The abdomen appears normal. No obvious hernias or mass. The abdomen is soft and benign, non-distended, with no pain, no guarding and no rebound tenderness. Bowel sounds are present and normal sounding. No CVA tenderness. Genitourinary: Back/Spine: Nontender Extremities/Musculoskeletal/lymphatic: The bilateral upper and lower extremities are warm. There is no evidence of arterial insufficiency. There is no evidence of venous insufficiency/edema. The patient spontaneously moves bilateral upper and lower extremities with no pain and no limitation of movement. There is no apparent, injury or trauma. Skin: The skin is warm, dry and intact. No rashes. No petechia. No purpura. No abnormal bruising. The color is appropriate with no cyanosis. Mental status/Psychiatric: Mental status is appropriate for age. The patient has no apparent delusions, visual hallucinations, no apparent audible hallucinations. The patient has no apparent suicidal thoughts/ideation and no apparent homicidal thoughts/ideation. Neurological: The patient is awake, alert, interactive, cordial, cooperative and is oriented to name and situation. The patient follows commands and answers historical question with no impairment. There is no visual disturbance apparent. The pupils are equal and reactive bilaterally with normal eye movements and no diplopia The bilateral upper and lower extremities have normal strength, normal range of motion and normal functioning. The gait, station and balance appear to be baseline with no acute change Course Quality Measures none Vital Signs Vital signs: Vital Signs Temperature 99.0 F 09/20/24 09:14 Pulse Rate 83 09/20/24 09:14 Respiratory Rate 16 09/20/24 09:14 Blood Pressure 116/80 09/20/24 09:14 Pulse Oximetry (%) 97 09/20/24 09:14 Oxygen Delivery Method Room Air 09/20/24 09:14 [facility] Patient data External records reviewed:: [facility] previous records (Reviewed last ED visit dated 09/14/24, discharged with the following: Depression) and EMS form Clinical information provided by:: patient and EMS Social determinants that could affect healthcare access:: housing (senior care) Patient has the following chronic illnesses:: mild developmental delay, depression How is presenting disease/condition affected by chronic disease/condition?: uneffected by Evaluation data The following diagnostics were reviewed and interpreted by me:: other (specify) (none) Lab and/or radiology exams considered but not ordered:: none Interpretation Summary: See under MDM narrative. Medications Medications considered but not ordered:: none Medication administrations:: none Consultations Consultation(s) initiated? (list below): No Diagnosis Differential Diagnosis ED Complaint MDM: influenza, COVID, strep throat Most likely diagnosis given after review of the tests above:: Cough Viral illness Admission Indicated Admission indicated?: not indicated Explain why admission is indicated or not indicated:: Patient has no emergent abnormalities on his studies and can be managed on an outpatient basis. Admission Request Was there a request for admission?: No Disposition Plan Disposition Plan: Discharge Discharge Attestation Discharge Attestation: The patient and all family members were given an opportunity to ask questions and understood the discharge instructions. Discharge instructions specifically effects, indications for sooner follow up or return to the emergency department, and the expected course of current diagnosis. Patient condition: Stable Medical Decision Making MDM Narrative MDM Narrative: I, Esthela Olea, am scribing for and in the presence of Dr. Perez. Patient is from a senior care facility [facility] and evidently is well-known to the staff as he comes in frequently and every once a while tries to escape out the back door. Today's chief complaint is a cough and states his body is achy. He does not know that he has any fever. Clinically no workup is needed other than reassurance. Clinically he is not sick in any significant way. Lungs are perfectly clear O2 sats are normal at 99%. Noted and there is no fever fever vomiting diarrhea reported. Clinically that he has no other problem. From my standpoint he does not need a workup will confirm his vital signs and discharge him accordingly Differential Diagnosis Differential Diagnosis: influenza, COVID, strep throat Discharge Plan Plan Patient Disposition: HOME (Self Care) Prescriptions/Referrals Prescriptions/Med Rec: No Action famotidine [Pepcid] 20 mg tablet 20 mg PO BID Qty: 14 0RF Problem List Clinical Impression: Cough, Viral illness Patient/Caregiver Discharge Instructions Education Materials: ED Viral Syndrome (Adult) Additional Instructions: Today you have a viral illness causing cough body aches and chills. I would encourage you drink plenty of fluids take Tylenol for the fever aches and pains. If you are getting short of breath or worse please return. Understand there is lots of fluid going around and just good hygiene and precautions would be warranted at this time. Follow-up with your regular doctor or return if getting worse. Print Language: Citizen [place]
[2024-09-20 09:11] VITALS: BMI 24.1
[2024-09-20 09:14] VITALS: BP 116/80; PULSE 83; RESP 16; TEMP 37.2; O2SAT 97
--- NOTE | 2024-09-20 09:25 | PC.NURSE ---
RN spoke called and left message with Ebony at [phone] for pick pulling machine tender transportation.
== END 2024-09-20 10:33 | disposition home or self-care (01) ==
LOC: SERX 09:36
PROVIDERS: Emergency Provider Emergency Medicine; PCP Nurse Practitioner Women's Health
DX: B34.9 Viral infection, unspecified (principal)
CPT/HCPCS: 99281

== ENCOUNTER 2024-11-16 17:34 | Emergency (ER) | payer MEDICAID, SELFPAY ==
[2024-11-16 17:40] VITALS: BP 105/71; PULSE 87; RESP 18; TEMP 36.9; O2SAT 95; BMI 22.3
--- NOTE | 2024-11-16 17:54 | PD.EDADULT ---
ED General RME/HPI General Chief complaint: Suicidal Stated complaint: MEDICAL CLEARENCE Time Seen by Provider: 11/16/24 17:53 Arrival date/time: 11/16/24 17:34 CC: Suicidal ideation 5150 patient presented to the [facility] PD was contacted for he is found with superficial parallel lineal abrasions to his right forearm patient was hurting himself after running away from the care facilities at saying he missed his mom . Patient denies any pain at this time. Related Data Previous Rx's ?Medication ?Instructions ?Recorded famotidine 20 mg tablet (Pepcid) 20 mg PO BID #14 tabs 08/06/24 Allergies Allergy/AdvReac Type Severity Reaction Status Date / Time No Known Allergies Allergy Verified 11/16/24 18:55 Review of Systems Review of Systems Narrative Review of Systems: GEN: No fever, no chills, no weight loss EYES: No discharge, no visual changes, no pain HEENT: No ear pain, no congestion, no sore throat PULM: No shortness of breath, no cough, no congestion CV: No chest pain, no dyspnea on exertion, no palpitations GI: No nausea, no vomiting, no diarrhea, no pain, no constipation : No frequency, no urgency, no dysuria MUSC/SKEL: No joint pain, no back pain SKIN: No rash PSYCH: No hallucinations, + depression HEME/LYMPH: No easy bleeding or bruising tendencies NEURO: No weakness, no headache Past Medical History Past Medical History CARDIAC: Negative Congestive Heart Failure RESPIRATORY: Negative Chronic Obstructive Pulmonary Disease (COPD) GENITOURINARY: Negative Renal Disease ENDOCRINE: Negative Diabetes Mellitus Type 1 or Diabetes Mellitus Type 2 PSYCHO/SOCIAL: Positive Depression OTHER HISTORY: Positive Developmental Delay Social History SMOKING STATUS: Never smoker SUBSTANCE USE: does not use ED Exam Narrative Physical exam: [General: Obese not in cot no acute distress Head normocephalic HEENT: Within acceptable limits Neck is supple nontender Chest equal chest rise nontender to palpation Respiratory: Clear to auscultation no wheezes crackles or rubs CV: Rate rhythm is regular no murmurs rubs or clicks Abdomen is distended secondary to body habitus soft nontender no masses positive bowel sounds all 4 quadrants Back: No CVA tenderness no spinous process tenderness from cervical spine thoracic and lumbar spine Skin: Clusters are superficial parallel abrasions to the left forearm. Otherwise skin is intact no petechiae rash induration ulceration or crepitus Extremities: Moving all extremity against resistance cap refill less than 2 seconds neurosensory intact Neuro: Awake alert oriented x3 Glascow coma 15 no focal deficits] Course Course Course Narrative: Patient is cleared for crisis evaluation. Quality Measures none Orders Category Date Time Status Alcohol, Urine Stat Lab 11/16/24 19:43 Completed CBC Stat Lab 11/16/24 18:40 Completed CMP [Comprehensive Metabolic Panel] Stat Lab 11/16/24 18:40 Completed Drug Screen,Urine Stat Lab 11/16/24 19:43 Completed Urinalysis Stat Lab 11/16/24 19:43 Completed Potassium Chloride [K-Dur] Med 11/17/24 05:22 Discontinued 40 meq PO X1 ONE Vital Signs Vital signs: Vital Signs Temperature 98.5 F 11/16/24 17:40 Pulse Rate 87 11/16/24 17:40 Respiratory Rate 18 11/16/24 17:40 Blood Pressure 105/71 11/16/24 17:40 Pulse Oximetry (%) 95 11/16/24 17:40 Oxygen Delivery Method Room Air 11/16/24 17:40 Discharge Plan Plan Patient Disposition: HOME (Self Care) Patient condition on transfer: Stable Prescriptions/Referrals Prescriptions/Med Rec: No Action famotidine [Pepcid] 20 mg tablet 20 mg PO BID Qty: 14 0RF Referrals: No Primary/Family,Physician [Primary Care Provider] - In 1 week Problem List Clinical Impression: Suicide ideation, Abrasions of multiple sites Patient/Caregiver Discharge Instructions Education Materials: Depression and Suicide Additional Instructions: Please follow-up with mental health as directed. Return to the Emergency Department as needed. Print Language: Syriac Stand Alone Forms: [employer] Info., Patient Portal Info Letter MDM Patient Acuity Low Acuity (complete MDM as needed) Clinical Information Provided by: patient and law enforcement Medical Records reviewed [facility] Meds/Rx considered, not ordered None Labs/Rad/Tests considered, not ordered None Chronic Illness/Social Conditions which may negatively complicate care or outcome(s)-explain: Mental health Labs Lab(s) Interpretation(s): CBC shows no acute leukocytosis anemia thrombocytopenia CMP shows potassium of 3.2 no other significant electrolyte imbalances renal impairment transaminitis or T. bili elevation. Urine is negative for UTI UDS is negative. Medication Administration(s) Medication Administration History Discontinued Medications Potassium Chloride (Potassium Chloride 20 Meq Tabcr) 40 meq PO X1 ONE Stop: 11/17/24 05:23 Last Admin: 11/17/24 06:08 Dose: 40 meq Documented By: YAYO
[2024-11-16 18:52] VITALS: BMI 22.3
[2024-11-16 19:00] LABS: Basophils # (Auto) 0.1 Thou/mm3 (0.0-0.2); Basophils % (Auto) 1 % (0-2.5); Eosinophils # (Auto) 0.2 Thou/mm3 (0.0-0.5); Eosinophils % (Auto) 2 % (0-10); Hematocrit 45.8 % (41.0-53.0); Immature Granulocytes % (Auto) 0 % (0-0); Immature Granulocytes Auto 0.02 Thou/mm3 (0.00-0.00); Lymphocytes # (Auto) 2.1 Thou/mm3 (1.0-4.8); Lymphocytes % (Auto) 22 % (10-50); Mean Corpuscular HGB Conc 34.9 g/dl (31.0-37.0); Mean Corpuscular Hemoglobin 29.3 pg (25.0-35.0); Mean Corpuscular Volume 84 fL (80-100); Monocytes # (Auto) 0.5 Thou/mm3 (0.0-0.8); Monocytes % (Auto) 6 % (0-12); Neutrophils # (Auto) 6.5 Thou/mm3 (1.8-7.7); Neutrophils % (Auto) 69 % (37-80); Nucleated Red Blood Cell % 0 /100 WBC (0); Platelet Count 161 Thou/mm3 (140-440); RDW Standard Deviation 37.6 fL (35.1-43.9); Red Blood Count 5.46 Miln/mm3 (4.50-5.90); White Blood Count 9.4 Thou/mm3 (3.8-10.6)
[2024-11-16 19:21] LABS: Alanine Aminotransferase 62 U/L (10-49); Albumin, Serum 4.4 gm/dL (3.5-5.0); Albumin/Globulin Ratio 1.5 (1.2-2.2); Alkaline Phosphatase 77 U/L (46-116); Anion Gap 9 (7-16); Aspartate Amino Transferase 28 U/L (0-34); BUN/Creatinine Ratio 9 Ratio (12-20); Bilirubin,Total 0.7 mg/dL (0.3-1.2); Blood Urea Nitrogen 10 mg/dL (9-23); Calcium 9.5 mg/dL (8.3-10.6); Calcium (Corrected) 9.5 mg/dL (8.5-10.1); Carbon Dioxide 26.3 mMol/L (20.0-31.0); Chloride 103 mMol/L (98-107); Creatinine (Component) 1.1 mg/dL (0.6-1.3); Estimated Creatinine Clearance 87.9 mL/min (>60); Glucose 129 mg/dL (74-106); Osmolality,Calculated 276 (275-295); Potassium 3.2 mMol/L (3.4-5.1); Sodium 138 mMol/L (136-145); Total Protein 7.4 gm/dL (5.7-8.2); eGFR > 60 See Note
[2024-11-16 20:16] LABS: Collection Type, Urine Clean Catch
[2024-11-16 20:20] LABS: Bilirubin,Urine Negative (Negative); Blood,Urine Negative (Negative); Clarity,Urine Clear (Clear/Hazy); Color,Urine Lt-Yellow (Lt Yel-Yel); Glucose, Urine Negative (Negative); Ketones,Urine Negative (Negative); Leukocyte Esterase,Urine Negative (Negative); Nitrite,Urine Negative (Negative); PH,Urine 6.5 (5.0-7.0); Protein,Urine Negative (Neg - Trace); RBC,Urine 2 /hpf (0-3); Specific Gravity,Urine 1.015 (1.001-1.035); Squamous Epithelial Cell,Urine < 1 /hpf (0-5); Urobilinogen,Urine Negative mg/dL (0.0-1.0); WBC,Urine 1 /hpf (0-5)
[2024-11-16 21:20] LABS: Alcohol, Urine Negative (Negative); Amphetamine/Methamp Scrn,U Negative (Negative); Barbiturate Screen,Urine Negative (Negative); Benzodiazepines Screen,Urine Negative (Negative); Benzoylecgonine Screen, Ur Negative (Negative); Fentanyl Screen,Urine Negative (Negative); Opiate Screen,Urine Negative (Negative); THC Screen,Urine Negative (Negative)
[2024-11-16 22:37] VITALS: BP 100/61; PULSE 61; RESP 18; TEMP 36.8; O2SAT 95
--- NOTE | 2024-11-16 23:24 | PD.EDADDENDU ---
Emergency Room Addendum Addendum Narrative: 2300: Care assumed from Guerrero Reyes NP. Past medical, surgical, social and family history reviewed. Vitals and home medications reviewed. Results and treatment plan discussed. I will assume the care of the patient at this time and will follow the patient, pending crisis evaluation. Please refer to the emergency department record for history and examination from initial visit. Patient was placed in observation for treatment and monitoring of psychiatric symptoms, at 2300 11/16/2024. Treatment plan includes psychiatric consult, reassessments, and possible placement into psychiatric facility. 0600: Care signed out to Dr. Zepeda (emergency physician). Past medical, surgical, social and family history reviewed. Vitals and home medications reviewed. Results and treatment plan discussed. They will assume the care of the patient at this time and will follow the patient, pending crisis evaluation. At this time, observation has ended.
[2024-11-17 04:00] VITALS: BP 106/74; PULSE 61; RESP 17; TEMP 36.7; O2SAT 96
[2024-11-17 06:00] VITALS: BP 97/66; PULSE 67; RESP 17; TEMP 36.8; O2SAT 96
[2024-11-17] MEDS: POTASSIUM CHLORIDE 20 mEq TABCR 40 MEQ PO (06:08)
--- NOTE | 2024-11-17 06:18 | PD.EDADDENDU ---
Emergency Room Addendum Addendum Narrative: 0600: Care assumed from Dr. Lyle, the previous shift emergency physician. Past medical, surgical, social and family history reviewed. Vitals and home medications reviewed. I will assume the care of the patient at this time, pending CRISIS evaluation. Please refer to the emergency department record for history and examination from initial visit.? The patient was placed in ED observation care at 11/17/2024 at 0600 hours. The patient was placed in ED observation care pending CRISIS evaluation. The patients past medical history, social history, and family history were reviewed. The plan of care will include serial examinations. While in ED observation the patient will have access to water, food, and personal hygiene. If the patient takes home medication(s), they will be continued in ED observation. Physical exam by me shows patient under no acute distress at this time. 1131: Mental health cleared the patient. Patient has a home evaluation scheduled at 3 PM today. Safety plan in place. Patient will be discharged. 1134: Patient remains clinically stable throughout the emergency department visit. Re-assessment at the time of disposition demonstrates that the patient is in no acute distress. 1205: Patient discharged. ED observation care ended at 11/17/2024 at 1205 hours. Diagnoses: - Suicidal ideation - Multiple abrasions
--- NOTE | 2024-11-17 08:15 | PC.NURSE ---
Regional Environmental Manager spoke wit patient
[2024-11-17 09:51] VITALS: BP 114/71; PULSE 68; RESP 20; TEMP 36.9; O2SAT 97
--- NOTE | 2024-11-17 11:34 | PC.CC ---
1133- ACSW Kg Mock spoke with ER provider Dr. Zepeda and agreed to rescinded the 5150 hold on a safety plan. Per pts caregiver, he has a scheduled appointment with his therapist Keyla at [facility]. Inspection Manager [facility] and spoke with Timbo who confirmed the scheduled appointment. Caregiver agrees to safety plan, which includes: removing all sharp objects from the home, continue to administer medications, and add extra supportive emotional services prior to the scheduled home visits and upon returning from his home visits with family. 0800- MAYRA Mock and MAYRA Veliz completed an assessment with the pt at bedside. Pt is a 24 yo male who is AOX4, developmentally delayed and resides in a [facility] with Theresa Blevins [phone]. Pt reported that he cut (Saturday morning while in program) himself due to missing his family and his mother. Pt reported he will talk to someone about his feelings next time and will use his coping skills to avoid self-harm. Pt was viewed to be developmentally delayed. Pt was cooperative, in a happy mood, and was able to safety plan. Pt is aware of the situation and understands that self-harming is dangerous to himself. Care provider agrees to safety plan and has scheduled a therapy appointment for the pt to meet with Keyla at [facility] today at 3pm. Pt understands the details of the safety plan and agrees.
--- NOTE | 2024-11-17 11:51 | PC.CC ---
1133- ACSW Kg Mock rescinded the 5150 hold with a safety plan to return home with the career services manager Theresa. Km Theresa agrees to the details of the safety plan and has scheduled a therapeutic appointment with the pts therapist today at 3pm.
[2024-11-17 12:02] VITALS: BP 136/83; PULSE 73; RESP 20; TEMP 36.6; O2SAT 98
== END 2024-11-17 12:06 | disposition home or self-care (01) ==
PROVIDERS: Registered Nurse General Practice; Emergency Provider Emergency Medicine
DX: R45.851 Suicidal ideations (principal); S50.811A Abrasion of right forearm, initial encounter; X58.XXXA Exposure to other specified factors, initial encounter
CPT/HCPCS: 36415; 80053; 80307; 80320; 81001; 85025; 96127; 99284; A9270; G0480